=== PATIENT | female | born 1935 | race Caucasian/White ===

== ENCOUNTER → 2017-02-17 | Outpatient (CLI) | payer BC ==
[~2017-02-17] MED LIST: ANAS1TAB19 PO; CALC1TAB9 PO; CALCTAB7 PO; CHOL2000 PO; CYAN100020 PO; DOCU100C31 PO; FELO5TAB PO; FOLI1TAB7 PO; GEMF600T PO; GLC/500 PO; MGNO400 PO; MULT-589 PO; POTA12PO5 PO; SENN1TAB77 PO; SERT50TA PO; SIMV40TA2 PO; THM100 PO; VTMB12 PO; Vit D PO
--- NOTE | 2017-02-17 16:19 | MAMMOGRAPHY REPORT ---
UNILATERAL LEFT DIGITAL DIAGNOSTIC MAMMOGRAM TOMOSYNTHESIS WITH CAD: 02/17/2017 CLINICAL HISTORY: 81-year-old woman with a personal history of right breast cancer status post recur rence and subsequent mastectomy presents for diagnostic evaluation of the left breast. She has a hi story of prior left breast surgery. TECHNIQUE: Left breast tomosynthesis in addition to standard 2D mammography was performed. Current naomi lam was also evaluated with a Computer Aided Detection (CAD) system. COMPARISON: Comparison is made to exams dated: 01/23/2016 ultrasound, 01/23/2016 mammogram, 01/15/2016 mammogram, 01/11/2015 mammogram, 01/10/2014 mammogram, and 01/07/2013 mammogram - [facility] enter. BREAST COMPOSITION: The tissue of the left breast is heterogeneously dense, which may obscure small masses. FINDINGS: There are mild vascular calcifications and scattered coarse and round benign-appearing caren rocalcifications in the left breast. There is expected architectural distortion in the 10:00 middle one third of the left breast, which appears similar on all available prior mammograms dating back t o at least 11/23/2008. No suspicious spiculated or irregular mass, unexpected architectural distort ion or cluster of microcalcifications is seen. IMPRESSION: ACR BI-RADS CATEGORY 2: BENIGN There is no mammographic evidence of malignancy within the left breast. Return to annual mammogram s creening schedule is recommended. The patient has been verbally notified of the results. Approximately 10% of breast cancers are not detected with mammography. A negative mammographic repor t should not delay biopsy if a clinically suggestive mass is present. Roz Guerrero M.D. ay/:02/17/2017 14:02:54 Ux Developer Designer: Mimi BERGER(Ciera)(Niraj), [facility] letter sent: Normal 1/2 BI-RADS Code: ACR BI-RADS Category 2: Benign
== END | disposition home or self-care (01) ==
LOC: C.MAMM 12:38
PROVIDERS: ATTEND Nurse Practitioner Family
DX: Z12.31 Encounter for screening mammogram for malignant neoplasm of breast (principal); Z85.3 Personal history of malignant neoplasm of breast

== ENCOUNTER 2017-05-12 19:06 | Observation (INO) | payer BC ==
[~2017-05-12] VITALS: Ht 160 cm; Wt 43.5 kg
[~2017-05-12 19:06] MED LIST changes: -CALC1TAB9 PO; -CHOL2000 PO; -CYAN100020 PO; -FELO5TAB PO; -FOLI1TAB7 PO; -MGNO400 PO; -MULT-589 PO; -THM100 PO; -VTMB12 PO
--- NOTE | 2017-05-12 19:31 | EMERGENCY ROOM VISIT NOTE ---
History First contact with patient: 19:25 Chief Complaint: FALL Stated Complaint: FALL History of Present Illness The patient is a 81 year old female who presents to the Emergency Room with complaints of head laceration post fall 2 days ago, patient fell, after rising rapidly from chair. She denies tripping on anything, LOC, dizziness or lightheadedness. No SOB or CP, but does state her heart was "moving very fast." When asked how she fell, she states "because I 'm stupid" Currently she admits to head pain at site of 2 bumps, and back pain. She denies limb weakness, pain radiating down her legs, or saddle paresthesias. At baseline, patient states she ambulates with a cane, and her last fall occurred 1 year prior Says she is eating well. No issues with voiding or bowel movements. Denies issues completing chores at home (she lives alone). Patient from [place], and has no family here JOSE Osei [phone] (home), cell [phone] (neighbour) Story as per JOSE: Patient had picked up her newspaper yesterday, but not this morning. Ariadna went to check in on her Patient didn't open door for her, so Ariadna let herself in. She found patient in bed with head lacs. Found splatter of blood in living room. Patient screamed at Ariadna telling her to leave, but she called EMS instead. Ariadna also noted patient had 10 full size bottles of whisky at home, unsure of how recently they were consumed, but knows the patient to be a (?heavy) drinker, who has been belligerent at times. Estimates that she may go through 1 or 2 bottles each week. Says patient has several recurrent falls, and most recently, appeared to Ariadna 's april lunch, patient had bruised face/eye at the time. She does not think there is abuse involved as the patient is very isolated. Patient still drives, which concerns JOSE. JOSE does not think patient is safe at home. Review of Systems See HPI for pertinent positives and negatives. A total of ten systems were reviewed and were otherwise negative. Past Medical/Surgical History Medical Problems: (1) Breast cancer (2) Syncope and collapse (3) Vitamin B12 deficiency Social History Smoking Status: Former Smoker Alcohol Use: heavy, other (unquantified) Drug Use: none Marital Status: Housing Status: lives alone Occupation Status: retired Current/Historical Medications Scheduled Anastrozole (Arimidex), 1 MG PO DAILY Calcium Citrate-Vitamin D (Citracal + D3 Maximum), Unknown Dose PO DIRECTED Cyanocobalamin (Vitamin B12), 1,000 MCG PO DIRECTED Felodipine (Plendil), 5 MG PO DAILY Gemfibrozil (Lopid), 600 MG PO BID Sertraline (Zoloft), 50 MG PO DAILY Simvastatin (Zocor), 50 MG PO QPM Physical Exam Vital Signs Date Time Temp Pulse Resp B/P (MAP) Pulse Ox O2 Delivery O2 Flow Rate FiO2 05/12/17 21:46 88 18 100 05/12/17 21:30 137/81 05/12/17 21:16 90 19 99 05/12/17 21:04 127/87 05/12/17 20:16 89 25 100 05/12/17 20:11 85 15 100 05/12/17 20:00 132/75 05/12/17 19:41 93 28 100 05/12/17 19:36 94 21 97 05/12/17 19:30 106/92 05/12/17 19:29 92 05/12/17 19:20 143/86 05/12/17 19:06 36.8 91 16 143/86 96 Room Air Physical Exam GENERAL: alert, cachectic, lying in bed, no acute distress, non-toxic. Clothes are not soiled but are unkempt dirty/lauren HEAD: Normocephalic, traumatic laceration on superior posterior side of scalp, still oozing blood. No sinus tenderness. EYES: PERRL, EOMI, normal conjunctiva OROPHARYNX: no exudate, no erythema, lips, buccal mucosa, and tongue normal and mucous membranes are dry NECK: supple, no nuchal rigidity, no adenopathy, non-tender. No nuchal rigidity LUNGS: Clear to auscultation. Normal chest wall mechanics, good air entry. No crepitations, crackles, or wheezes HEART: S1 normal and S2 normal, no murmurs CHEST: No reproducible tenderness. ABDOMEN: abdomen soft, non-tender, normo-active bowel sounds, no masses, no rebound or guarding. BACK: Back is symmetrical on inspection, no deformities, but diffuse bruising present SKIN: Warm, pink, dry. No erythema, rashes. Bruising on back. Laceration on scalp. EXTREMITIES: Grossly normal. Able to move all 4 limbs but elicits pain. Strength 4-5/5. No pitting edema. Calves non tender. NEURO: Alert, Ox3. No focal deficits. Normal sensorium, cranial nerves II-XII grossly intact, normal speech. Kernig and Brudzinski negative PSYCH: Mood and affect appropriate. Medical Decision & Procedures ER Provider Diagnostic Interpretation: HEAD WITHOUT CONTRAST (CT) CLINICAL HISTORY: 81 years-old Female with Fall. TECHNIQUE: Multiple axial CT images of the head were obtained without contrast. A dose lowering technique was utilized adhering to the principles of ALARA. CT DOSE: 1425.10 mGy.cm COMPARISON: CT head 09/17/2014. FINDINGS: No acute intracranial hemorrhage, midline shift, mass, large territorial ischemia or abnormal extra-axial collection. There is moderate cerebral atrophy with ex vacuo ventriculomegaly. Senescent calcifications are seen within the lentiform nuclei bilaterally. Patchy areas of low attenuation within the periventricular white matter are compatible with chronic microvascular ischemic changes. The calvarium is intact. The paranasal sinuses, mastoid air cells, and middle ear cavities are clear. There has been prior right-sided cataract repair. IMPRESSION: 1. No acute intracranial abnormality. 2. Age-related findings of atrophy and chronic microvascular ischemic changes. CHEST ONE VIEW PORTABLE HISTORY: 81 years-old Female fall, bruising COMPARISON: Chest radiograph 09/17/2014 TECHNIQUE: Portable upright AP view of the chest FINDINGS: Cardiomediastinal and hilar silhouettes are within normal limits. There is atherosclerosis of the aorta. There is no pneumothorax, pleural effusion or focal airspace consolidation. The lungs are again hyperinflated. Surgical clips are seen within the region of the right axilla. There is subtle sigmoidal scoliosis of the spine. Exuberant osteophytic spurring is seen of the left distal clavicle. No acute displaced rib fractures are identified. IMPRESSION: 1. No acute cardiopulmonary process. 2. No acute displaced rib fracture or pneumothorax identified. (CHEST) THORAX WITHOUT CLINICAL HISTORY: 81 years-old Female with traumatic fall. TECHNIQUE: Multiaxial CT images of the chest were performed without contrast. A dose lowering technique was utilized adhering to the principles of ALARA. COMPARISON: CT abdomen and pelvis of same day, chest radiograph of same day. Chest radiograph 02/23/2014 FINDINGS: There are calcifications of the posterior left thyroid lobe without large nodule identified. Calcified lymph nodes throughout the mediastinum and carlos are compatible with prior granulomatous disease. There is moderate atherosclerosis of the thoracic aorta. Coronary arterial calcifications are present. Lungs are hyperinflated with mild left greater than right subsegmental atelectasis. There is a linear calcified granuloma of the right lower lobe. No pneumothorax, pleural effusion or focal airspace consolidation. There is diffuse fatty infiltration of the liver. Diverticula of the splenic flexure noted. The bones are moderately demineralized, which limits evaluation for acute nondisplaced fracture. There is increased kyphotic curvature of the thoracic spine. Superior compression deformity of L1 with approximately 20% loss of height anteriorly is noted with 3 mm retropulsion. This is unchanged dating back to at least 02/23/2014. IMPRESSION: 1. No acute intrathoracic abnormality. 2. No acute fracture identified. 3. Remote compression deformity of L1 appears unchanged dating back to at least 02/23/2014. 4. Additional incidental findings as above. CERVICAL SPINE W/O CT DOSE: 1005.86 mGy.cm CLINICAL HISTORY: 81 years-old Female with trauma. Neck injury status post fall TECHNIQUE: Multiple axial CT images of the cervical spine were obtained without contrast. A dose lowering technique was utilized adhering to the principles of ALARA. Comparison: CT cervical spine 09/17/2014. Findings: Remote fracture deformities involving the C3 vertebral body as well as the posterior elements at C4 and C5 are noted. No acute fracture or subluxation of the cervical spine is identified. The odontoid process and lateral pillars of C1 appear intact. Multilevel uncovertebral spurring and facet arthropathy is noted. Posterior disc osteophyte complex formation is seen at the C2-C3 and C3-C4 levels without high-grade central canal narrowing. Varying degrees of neural foraminal stenosis are seen at several levels without high-grade narrowing identified. The lung apices are clear. Calcifications are seen posterior to the left thyroid lobe. There is atherosclerotic plaquing of the bilateral carotid bulbs. IMPRESSION: 1. No acute cervical spine fracture or subluxation. 2. Remote healed fractures of the C3, C4 and C5 levels are noted. 3. Multilevel facet arthropathy is noted in addition to uncovertebral spurring and posterior disc osteophyte complex formation as above without high-grade central canal or foraminal narrowing identified. ABD/PELVIS NO IV OR ORAL CONT HISTORY: 81 years-old Female acute abdominal injury status post fall. COMPARISON: CT chest of same day, chest radiograph 02/23/2014. TECHNIQUE: Multiple axial CT images of the abdomen and pelvis were obtained without contrast. A dose lowering technique was used consistent with the principals of ALARA. FINDINGS: Subsegmental linear atelectasis involves the left lower lobe. There is a calcified granuloma of the right lower lobe. There is no pneumoperitoneum. Imaged inferior cardiac chambers are unremarkable. There is diffuse fatty infiltration of the liver. The spleen, gallbladder and right adrenal gland are unremarkable. There is nodular thickening of the left adrenal gland. There is at least moderate diffuse pancreatic atrophy. Cortical thinning of the left kidney is noted. No renal calculi or hydronephrosis identified. Urinary bladder is distended. Uterus appears to be age appropriate. There is moderate atherosclerotic plaquing and tortuosity of the abdominal aorta. No bulky adenopathy. There is a small sliding-type hiatal hernia. There is no bowel obstruction. Noninflamed colonic diverticula are present. The appendix appears normal. Moderate amount of body wall edema is present. Bones are moderately demineralized which limits evaluation for acute nondisplaced fractures. Moderate degenerative changes involve the hips bilaterally. Levoscoliosis of the lumbar spine is noted. There is remote compression deformity of the L1 vertebral body with 3 mm retropulsion. This compression deformity has been present since at least 02/23/2014. Moderate intervertebral disc space narrowing and facet arthropathy is present at L5-S1. No sacral insufficiency fracture identified. IMPRESSION: 1. No acute intra-abdominal or intrapelvic abnormality identified. No evidence of solid organ injury. 2. Remote compression deformity of the L1 vertebral body. No acute fracture is identified. 3. Additional incidental findings as above. Laboratory Results 05/12/17 20:50 Red Blood Count 3.23, Mean Corpuscular Volume 95.7, Mean Corpuscular Hemoglobin 33.4, Mean Corpuscular Hemoglobin Concent 35.0, Mean Platelet Volume 10.6, Neutrophils (%) (Auto) 91.6, Lymphocytes (%) (Auto) 3.7, Monocytes (%) (Auto) 3.9, Eosinophils (%) (Auto) 0.0, Basophils (%) (Auto) 0.1, Neutrophils # (Auto) 15.62, Lymphocytes # (Auto) 0.63, Monocytes # (Auto) 0.67, Eosinophils # (Auto) 0.00, Basophils # (Auto) 0.01 05/12/17 20:50 Test 05/12/17 20:50 05/12/17 20:53 05/12/17 22:38 White Blood Count 17.05 K/uL (4.8-10.8) Red Blood Count 3.23 M/uL (4.2-5.4) Hemoglobin 10.8 g/dL (12.0-16.0) Hematocrit 30.9 % (37-47) Mean Corpuscular Volume 95.7 fL (80-100) Mean Corpuscular Hemoglobin 33.4 pg (25-34) Mean Corpuscular Hemoglobin Concent 35.0 g/dl (32-36) Platelet Count 153 K/uL (130-400) Mean Platelet Volume 10.6 fL (7.4-10.4) Neutrophils (%) (Auto) 91.6 % Lymphocytes (%) (Auto) 3.7 % Monocytes (%) (Auto) 3.9 % Eosinophils (%) (Auto) 0.0 % Basophils (%) (Auto) 0.1 % Neutrophils # (Auto) 15.62 K/uL (1.4-6.5) Lymphocytes # (Auto) 0.63 K/uL (1.2-3.4) Monocytes # (Auto) 0.67 K/uL (0.11-0.59) Eosinophils # (Auto) 0.00 K/uL (0-0.5) Basophils # (Auto) 0.01 K/uL (0-0.2) RDW Standard Deviation 47.6 fL (36.4-46.3) RDW Coefficient of Variation 13.6 % (11.5-14.5) Immature Granulocyte % (Auto) 0.7 % Immature Granulocyte # (Auto) 0.12 K/uL (0.00-0.02) Prothrombin Time 10.0 SECONDS (9.0-12.0) Prothromb Time International Ratio 0.9 (0.9-1.1) Est Creatinine Clear Calc Drug Dose 32.9 ml/min Estimated GFR () 64.4 Estimated GFR (Non- 55.5 BUN/Creatinine Ratio 10.6 (10-20) Calcium Level 10.0 mg/dl (8.5-10.1) Total Bilirubin 1.0 mg/dl (0.2-1) Aspartate Amino Transf (AST/SGOT) 62 U/L (15-37) Alanine Aminotransferase (ALT/SGPT) 37 U/L (12-78) Alkaline Phosphatase 106 U/L (45-117) Total Creatine Kinase 248 U/L (26-192) Troponin I 0.017 ng/ml (0-0.045) Total Protein 6.5 gm/dl (6.4-8.2) Albumin 3.3 gm/dl (3.4-5.0) Globulin 3.2 gm/dl (2.5-4.0) Albumin/Globulin Ratio 1.0 (0.9-2) Bedside Hemoglobin 12.2 g/dl (12.0-16.0) Bedside Hematocrit 36 % (37-47) Bedside Sodium 133 mEq/L (135-144) Bedside Potassium 5.4 mEq/L (3.3-5.0) Bedside Chloride 105 mEq/L (101-112) Bedside Total CO2 22 mEq/l (24-31) Anion Gap 14.0 mmol/L (16-25) Bedside Blood Urea Nitrogen 11 mg/dl (7-18) Bedside Creatinine 0.9 mg/dl (0.6-1.3) Bedside Glucose (other) 133 mg/dl (70-99) Bedside Ionized Calcium (Silvino) 1.19 mmol/l (1.12-1.32) Ethyl Alcohol mg/dL < 3.0 mg/dl (0-3) Medications Administered Medications (Trade) Dose Ordered Sig/Jenny Route Start Time Stop Time Status Last Admin Dose Admin Sodium Chloride 250 ml @ 250 mls/hr Q1H IV 05/12/17 20:45 05/12/17 21:44 DC 05/12/17 20:52 250 MLS/HR Sodium Chloride 250 ml @ 100 mls/hr Q2H30M IV 05/12/17 22:00 05/13/17 00:29 DC 05/12/17 22:15 100 MLS/HR Multivitamins 10 ml/Thiamine HCl 100 mg/Folic Acid 1 mg/Sodium Chloride 1,011.2 ml @ 75 mls/hr [id number] STAT IV 05/12/17 22:17 05/13/17 11:45 DC 05/12/17 22:53 75 MLS/HR Procedure Patient verbally consented for scalp laceration repair, with risks and benefits explained, and alternatives offered. Laceration was irrigated with copious normal saline solution. Local area was anesthetized with 2cc of lidocaine without epinephrine. Area cleaned with Betadine wipes x 3. Edges were approximated and 3 peyton were used to hold the skin in place, hemostasis was achieved. Patient tolerated the procedure well. No immediate complications were met ECG Indication: syncope Rate (beats per minute): 90 Rhythm: normal sinus Change: no significant change (When compared with ECG of 17-SEP-2014 16:32) ED Course 1929: The patient was evaluated in room A11B, and a complete history and physical examination were performed. 2002: Labs and imaging were ordered 2100: Patient was reevaluated and doing well. She continued to decline analgesia 0: In depth discussion was had with neighbour (POA) and neighbour's daughter 2225: Patient and guests were updated and advised that patient would be admitted for further evaluation. The patient and family were agreeable 2230: Patient was discussed with Dr. Cazares and Dr. Barker ([facility] who were agreeable to assess patient 2240: Head lacerations repaired Medical Decision Prior records/ancillary studies reviewed. Triage Nursing notes reviewed. Additional history obtained from patient, patient's neighbour (POA) and neighbour's daughter. The patient's history was concerning for traumatic injury Differential diagnosis: Etiologies such as fracture, dislocation, intra-abdominal, pneumothorax, intrathoracic , intracranial, neurologic, as well as other traumatic pathologies were entertained. Physical examination findings: As above. The patients vitals were stable. ER treatment provided: IV Normal Saline hydration, 250 mL. On reassessment the patient felt better. Vital signs were stable through out. Diagnostic interpretation by me: A 12 lead ECG revealed no emergent pathology. The labs revealed leukocytosis, anemia, mild elevation of CK, and elevated AST Imaging studies were negative for ICH and acute fractures Consultation: A consultation was placed with [facility] hospitalist. The case was discussed and diagnostics were reviewed. The patient was considered for admission. This appears to be consistent with fall. By the evaluation outlined above emergent etiologies such as fracture, dislocation, intra-abdominal, pneumothorax , pulmonary contusion, hemothorax, intracranial, neurologic,as well as others were deemed relatively unlikely. The patient and POA informed about the findings as listed above. All questions were answered and they were pleased with the treatment and agreeable for admission. Impression Primary Impression: Weakness Additional Impressions: Contusion Recurrent falls AA (alcohol abuse) Laceration of head Departure Information Referrals Rodger Arnold M.D. (PCP) Patient Instructions My [facility] Resident Tracking Resident Involvement: Resident Care Provided Care Provided: Adult ED Problem Qualifiers
--- NOTE | 2017-05-12 20:20 | EMERGENCY ROOM VISIT NOTE ---
History Report prepared by Kole: Wyatt Coffey Under the Supervision of: Dr. French Loza M.D. First contact with patient: 19:25 Chief Complaint: FALL Stated Complaint: FALL History of Present Illness The patient is a 81 year old female who lives home alone who presents to the Emergency Room with a mechanical fall that occurred more than 24 hours ago. Per EMS, the patient's neighbors walked into the patient's home to find the patient on the floor. The patient was probably on the floor for more than 24 hours, and the patient was brought off of the ground. Per the patient, she was sitting watching TV 2 days ago, and got off the couch too quickly and fell. She says that she was able to get up after 5 minutes, and actually opened the door for her neighbors. The patient notes that her heart has been beating rapidly recently and that she has back pain. She says her last fall was a year ago. The patient denies any fevers, dizziness, lightheadedness, chest pain, abdominal pain, shortness of breath, nausea, numbness, or tingling. She says that her last bowel movement was this morning. The patient is noted to have a head laceration that is bleeding as well as a bump on her head. She adds that she did not take any of her medications this morning. Source of History: patient, EMS Onset: More than 24 hours ago Position: other (global - fall) Quality: other (mechanical) Associated Symptoms: + back pain, No fevers, No chest pain, No SOB, No nausea, No vomiting, No abdominal pain, No numbness (or tingling) Note: Associated symptoms: Feelings of rapid heart rate. Denies dizziness, lightheadedness. Review of Systems See HPI for pertinent positives & negatives. A total of 10 systems reviewed and were otherwise negative. Past Medical & Surgical Medical Problems: (1) Breast cancer (2) Syncope and collapse (3) Vitamin B12 deficiency Old medical records were reviewed. Nurse's notes were reviewed and I agree with. Family History Family history omitted secondary to patient's advanced age. Social History Smoking Status: Former Smoker Drug Use: none Marital Status: Occupation Status: retired Current/Historical Medications Scheduled Anastrozole (Arimidex), 1 MG PO DAILY Calcium Citrate-Vitamin D (Citracal + D3 Maximum), Unknown Dose PO DIRECTED Cyanocobalamin (Vitamin B12), 1,000 MCG PO DIRECTED Felodipine (Plendil), 5 MG PO DAILY Gemfibrozil (Lopid), 600 MG PO BID Metformin Hcl (Glucophage), 500 MG PO DAILY Sertraline (Zoloft), 50 MG PO DAILY Simvastatin (Zocor), 50 MG PO QPM Allergies Coded Allergies: Penicillins (Verified Allergy, Mild, 05/12/17) Sulfa Drugs (Verified Adverse Reaction, Unknown, GI SYMPTOMS, 05/12/17) Physical Exam Vital Signs Date Time Temp Pulse Resp B/P (MAP) Pulse Ox O2 Delivery O2 Flow Rate FiO2 05/13/17 00:04 83 18 120/73 100 05/12/17 21:46 88 18 100 05/12/17 21:30 137/81 05/12/17 21:16 90 19 99 05/12/17 21:04 127/87 05/12/17 20:16 89 25 100 05/12/17 20:11 85 15 100 05/12/17 20:00 132/75 05/12/17 19:41 93 28 100 05/12/17 19:36 94 21 97 05/12/17 19:30 106/92 05/12/17 19:29 92 05/12/17 19:20 143/86 05/12/17 19:06 36.8 91 16 143/86 96 Room Air Physical Exam General: Well developed well nourished cachectic older female in no acute distress, breathing comfortably on room air. Normal speech HEENT: Dry blood and laceration with some swelling in posterior scalp. Has bruising on thoracic back. Pupils are equal round and reactive to light. Extraocular movements are intact. Oropharynx is pink with moist mucous membranes. No swelling of the mouth lips or tongue. Neck: Supple with a midline trachea. No meningeal signs or stiffness, no JVD or bruits. No Stridor. Chest: Clear to auscultation bilaterally. No wheezes or rhonchi. No increased work of breathing. She does have multiple bruises on her back which appear somewhat old and possibly various ages Heart: regular rate and rhythm. Abdomen: Soft nontender, nondistended without rebound guarding or rigidity. Extremities: No cyanosis clubbing or edema. No calf tenderness or assymetry Spine/Back. Non tender to palpation. No CVA tenderness Skin: Good turgor without rashes. Neurologic exam: Cranial nerves two through 12 are intact. Motor and sensation are intact and symmetrical throughout. Medical Decision & Procedures ER Provider Diagnostic Interpretation: Radiology results as stated below per my review and radiologist interpretation: HEAD WITHOUT CONTRAST (CT) CLINICAL HISTORY: 81 years-old Female with Fall. TECHNIQUE: Multiple axial CT images of the head were obtained without contrast. A dose lowering technique was utilized adhering to the principles of ALARA. CT DOSE: 1425.10 mGy.cm COMPARISON: CT head 09/17/2014. FINDINGS: No acute intracranial hemorrhage, midline shift, mass, large territorial ischemia or abnormal extra-axial collection. There is moderate cerebral atrophy with ex vacuo ventriculomegaly. Senescent calcifications are seen within the lentiform nuclei bilaterally. Patchy areas of low attenuation within the periventricular white matter are compatible with chronic microvascular ischemic changes. The calvarium is intact. The paranasal sinuses, mastoid air cells, and middle ear cavities are clear. There has been prior right-sided cataract repair. IMPRESSION: 1. No acute intracranial abnormality. 2. Age-related findings of atrophy and chronic microvascular ischemic changes. The above report was generated using voice recognition software. It may contain grammatical, syntax or spelling errors. Electronically signed by: Michael Iglesias M.D. 05/12/2017 8:42 PM Dictated Date/Time: 05/12/2017 8:40 PM CHEST ONE VIEW PORTABLE HISTORY: 81 years-old Female fall, bruising COMPARISON: Chest radiograph 09/17/2014 TECHNIQUE: Portable upright AP view of the chest FINDINGS: Cardiomediastinal and hilar silhouettes are within normal limits. There is atherosclerosis of the aorta. There is no pneumothorax, pleural effusion or focal airspace consolidation. The lungs are again hyperinflated. Surgical clips are seen within the region of the right axilla. There is subtle sigmoidal scoliosis of the spine. Exuberant osteophytic spurring is seen of the left distal clavicle. No acute displaced rib fractures are identified. IMPRESSION: 1. No acute cardiopulmonary process. 2. No acute displaced rib fracture or pneumothorax identified. The above report was generated using voice recognition software. It may contain grammatical, syntax or spelling errors. Electronically signed by: Michael Iglesias M.D. 05/12/2017 8:36 PM (CHEST) THORAX WITHOUT CLINICAL HISTORY: 81 years-old Female with traumatic fall. TECHNIQUE: Multiaxial CT images of the chest were performed without contrast. A dose lowering technique was utilized adhering to the principles of ALARA. COMPARISON: CT abdomen and pelvis of same day, chest radiograph of same day. Chest radiograph 02/23/2014 FINDINGS: There are calcifications of the posterior left thyroid lobe without large nodule identified. Calcified lymph nodes throughout the mediastinum and carlos are compatible with prior granulomatous disease. There is moderate atherosclerosis of the thoracic aorta. Coronary arterial calcifications are present. Lungs are hyperinflated with mild left greater than right subsegmental atelectasis. There is a linear calcified granuloma of the right lower lobe. No pneumothorax, pleural effusion or focal airspace consolidation. There is diffuse fatty infiltration of the liver. Diverticula of the splenic flexure noted. The bones are moderately demineralized, which limits evaluation for acute nondisplaced fracture. There is increased kyphotic curvature of the thoracic spine. Superior compression deformity of L1 with approximately 20% loss of height anteriorly is noted with 3 mm retropulsion. This is unchanged dating back to at least 02/23/2014. IMPRESSION: 1. No acute intrathoracic abnormality. 2. No acute fracture identified. 3. Remote compression deformity of L1 appears unchanged dating back to at least 02/23/2014. 4. Additional incidental findings as above. Electronically signed by: Michael Iglesias M.D. 05/12/2017 10:09 PM Dictated Date/Time: 05/12/2017 10:03 PM CERVICAL SPINE W/O CT DOSE: 1005.86 mGy.cm CLINICAL HISTORY: 81 years-old Female with trauma. Neck injury status post fall TECHNIQUE: Multiple axial CT images of the cervical spine were obtained without contrast. A dose lowering technique was utilized adhering to the principles of ALARA. Comparison: CT cervical spine 09/17/2014. Findings: Remote fracture deformities involving the C3 vertebral body as well as the posterior elements at C4 and C5 are noted. No acute fracture or subluxation of the cervical spine is identified. The odontoid process and lateral pillars of C1 appear intact. Multilevel uncovertebral spurring and facet arthropathy is noted. Posterior disc osteophyte complex formation is seen at the C2-C3 and C3-C4 levels without high-grade central canal narrowing. Varying degrees of neural foraminal stenosis are seen at several levels without high-grade narrowing identified. The lung apices are clear. Calcifications are seen posterior to the left thyroid lobe. There is atherosclerotic plaquing of the bilateral carotid bulbs. IMPRESSION: 1. No acute cervical spine fracture or subluxation. 2. Remote healed fractures of the C3, C4 and C5 levels are noted. 3. Multilevel facet arthropathy is noted in addition to uncovertebral spurring and posterior disc osteophyte complex formation as above without high-grade central canal or foraminal narrowing identified. The above report was generated using voice recognition software. It may contain grammatical, syntax or spelling errors. Electronically signed by: Michael Iglesias M.D. 05/12/2017 10:15 PM Dictated Date/Time: 05/12/2017 10:09 PM ABD/PELVIS NO IV OR ORAL CONT HISTORY: 81 years-old Female acute abdominal injury status post fall. COMPARISON: CT chest of same day, chest radiograph 02/23/2014. TECHNIQUE: Multiple axial CT images of the abdomen and pelvis were obtained without contrast. A dose lowering technique was used consistent with the principals of ALARA. FINDINGS: Subsegmental linear atelectasis involves the left lower lobe. There is a calcified granuloma of the right lower lobe. There is no pneumoperitoneum. Imaged inferior cardiac chambers are unremarkable. There is diffuse fatty infiltration of the liver. The spleen, gallbladder and right adrenal gland are unremarkable. There is nodular thickening of the left adrenal gland. There is at least moderate diffuse pancreatic atrophy. Cortical thinning of the left kidney is noted. No renal calculi or hydronephrosis identified. Urinary bladder is distended. Uterus appears to be age appropriate. There is moderate atherosclerotic plaquing and tortuosity of the abdominal aorta. No bulky adenopathy. There is a small sliding-type hiatal hernia. There is no bowel obstruction. Noninflamed colonic diverticula are present. The appendix appears normal. Moderate amount of body wall edema is present. Bones are moderately demineralized which limits evaluation for acute nondisplaced fractures. Moderate degenerative changes involve the hips bilaterally. Levoscoliosis of the lumbar spine is noted. There is remote compression deformity of the L1 vertebral body with 3 mm retropulsion. This compression deformity has been present since at least 02/23/2014. Moderate intervertebral disc space narrowing and facet arthropathy is present at L5-S1. No sacral insufficiency fracture identified. IMPRESSION: 1. No acute intra-abdominal or intrapelvic abnormality identified. No evidence of solid organ injury. 2. Remote compression deformity of the L1 vertebral body. No acute fracture is identified. 3. Additional incidental findings as above. The above report was generated using voice recognition software. It may contain grammatical, syntax or spelling errors. Electronically signed by: Michael Iglesias M.D. 05/12/2017 10:38 PM Dictated Date/Time: 05/12/2017 10:33 PM Laboratory Results 05/12/17 20:50 Red Blood Count 3.23, Mean Corpuscular Volume 95.7, Mean Corpuscular Hemoglobin 33.4, Mean Corpuscular Hemoglobin Concent 35.0, Mean Platelet Volume 10.6, Neutrophils (%) (Auto) 91.6, Lymphocytes (%) (Auto) 3.7, Monocytes (%) (Auto) 3.9, Eosinophils (%) (Auto) 0.0, Basophils (%) (Auto) 0.1, Neutrophils # (Auto) 15.62, Lymphocytes # (Auto) 0.63, Monocytes # (Auto) 0.67, Eosinophils # (Auto) 0.00, Basophils # (Auto) 0.01 05/12/17 20:50 Test 05/12/17 20:50 05/12/17 20:53 05/12/17 22:38 White Blood Count 17.05 K/uL (4.8-10.8) Red Blood Count 3.23 M/uL (4.2-5.4) Hemoglobin 10.8 g/dL (12.0-16.0) Hematocrit 30.9 % (37-47) Mean Corpuscular Volume 95.7 fL (80-100) Mean Corpuscular Hemoglobin 33.4 pg (25-34) Mean Corpuscular Hemoglobin Concent 35.0 g/dl (32-36) Platelet Count 153 K/uL (130-400) Mean Platelet Volume 10.6 fL (7.4-10.4) Neutrophils (%) (Auto) 91.6 % Lymphocytes (%) (Auto) 3.7 % Monocytes (%) (Auto) 3.9 % Eosinophils (%) (Auto) 0.0 % Basophils (%) (Auto) 0.1 % Neutrophils # (Auto) 15.62 K/uL (1.4-6.5) Lymphocytes # (Auto) 0.63 K/uL (1.2-3.4) Monocytes # (Auto) 0.67 K/uL (0.11-0.59) Eosinophils # (Auto) 0.00 K/uL (0-0.5) Basophils # (Auto) 0.01 K/uL (0-0.2) RDW Standard Deviation 47.6 fL (36.4-46.3) RDW Coefficient of Variation 13.6 % (11.5-14.5) Immature Granulocyte % (Auto) 0.7 % Immature Granulocyte # (Auto) 0.12 K/uL (0.00-0.02) Prothrombin Time 10.0 SECONDS (9.0-12.0) Prothromb Time International Ratio 0.9 (0.9-1.1) Est Creatinine Clear Calc Drug Dose 32.9 ml/min Estimated GFR () 64.4 Estimated GFR (Non- 55.5 BUN/Creatinine Ratio 10.6 (10-20) Calcium Level 10.0 mg/dl (8.5-10.1) Total Bilirubin 1.0 mg/dl (0.2-1) Aspartate Amino Transf (AST/SGOT) 62 U/L (15-37) Alanine Aminotransferase (ALT/SGPT) 37 U/L (12-78) Alkaline Phosphatase 106 U/L (45-117) Total Creatine Kinase 248 U/L (26-192) Troponin I 0.017 ng/ml (0-0.045) Total Protein 6.5 gm/dl (6.4-8.2) Albumin 3.3 gm/dl (3.4-5.0) Globulin 3.2 gm/dl (2.5-4.0) Albumin/Globulin Ratio 1.0 (0.9-2) Bedside Hemoglobin 12.2 g/dl (12.0-16.0) Bedside Hematocrit 36 % (37-47) Bedside Sodium 133 mEq/L (135-144) Bedside Potassium 5.4 mEq/L (3.3-5.0) Bedside Chloride 105 mEq/L (101-112) Bedside Total CO2 22 mEq/l (24-31) Anion Gap 14.0 mmol/L (16-25) Bedside Blood Urea Nitrogen 11 mg/dl (7-18) Bedside Creatinine 0.9 mg/dl (0.6-1.3) Bedside Glucose (other) 133 mg/dl (70-99) Bedside Ionized Calcium (Silvino) 1.19 mmol/l (1.12-1.32) Ethyl Alcohol mg/dL < 3.0 mg/dl (0-3) Laboratory studies as stated above per my review. Medications Administered Medications (Trade) Dose Ordered Sig/Jenny Route Start Time Stop Time Status Last Admin Dose Admin Sodium Chloride 250 ml @ 250 mls/hr Q1H IV 05/12/17 20:45 05/12/17 21:44 DC 05/12/17 20:52 250 MLS/HR Sodium Chloride 250 ml @ 100 mls/hr Q2H30M IV 05/12/17 22:00 05/13/17 00:29 05/12/17 22:15 100 MLS/HR Multivitamins 10 ml/Thiamine HCl 100 mg/Folic Acid 1 mg/Sodium Chloride 1,011.2 ml @ 75 mls/hr [id number] STAT IV 05/12/17 22:17 05/13/17 11:45 05/12/17 22:53 75 MLS/HR Procedure Location: Scalp. Total length: 1 cm Complexity: Simple Verbal consent was obtained after the risks and benefits were explained, including but not limited to bleeding, scarring, infection, pain, and bone/joint /nerve damage. At this time, the risks of the procedure are less than the risks of NOT performing the procedure. A time out was taken and the correct patient and site identified. The skin was prepped with betadine. The target area was anesthetized with half cc of 1% lidocaine without epinephrine. Copious irrigation was performed using normal saline. The skin was re-prepped with betadine and a sterile field set. The wound was explored for foreign bodies and none found. Examination revealed no injury to deep structures such as tendons, bone, or significant blood vessels. Debridement was not performed. The wound edges were approximated using 3 peyton. Hemostasis and excellent approximation was achieved. Antibacterial ointment and a sterile dressing applied. Detailed wound care instructions and signs and symptoms of infection reviewed with the patient.. No complications and the patient tolerated the procedure well. ECG Indication: weakness Rate (beats per minute): 90 Rhythm: normal sinus, other (poor baseline) Findings: no acute ischemic change, no ectopy Change: no significant change (compared to 09/17/14) ED Course 2014: Past medical records reviewed. The patient was evaluated in room A11B, and a complete history and physical examination were performed. 2044: Ordered NSS 250 ml @ 250 mls/hr IV. 2107: I reevaluated and updated the patient. 2199: Ordered NSS 250 ml @ 100 mls/hr IV. 2216: Ordered Multivitamins 10 ml/Thiamine HCl 100 mg/Folic Acid 1 mg/Sodium Chloride 1011.2 ml @ 75 mls/hr IV. 2228: I reevaluated the patient and she is resting. The patient and family verbally expressed understanding and agreement of the treatment plan. The patient will be evaluated for further treatment. 2229: Ordered Buffered Lidocaine 1% Inj 20 ml INFIL. 2231: I discussed the patient with Dr. Cazares - resident for Dr. Oliver ([facility] hospitalist) - she will evaluate the patient for further treatment. Medical Decision Differentials include, but are not limited to; trauma, syncope, arrhythmia, electrolyte or metabolic abnormality, rhabdomyolysis, infection. This patient comes in as described above. She was found down and there is uncertainty to how long she's been on the ground s. He tells a different story than EMS. She has a laceration her head and she has multiple bruises on her back. She is very cachectic appearing. We looked at her medications and they have not been filled for about a year. IV access established and she was hydrated with IV normal saline and there is certainly a concern initially for possible rhabdomyolysis. We did CAT scans but without contrast due to this concern. She has some several old injuries but nothing acute. EKG does not suggest acute coronary syndrome or arrhythmia. Potassium is mildly elevated but she has no EKG changes. Her CK is not significantly elevated but only mildly however she does not weigh much that she could have some mild rhabdo. We did repair her laceration with peyton as described above. Her friends who are her legal guardians and power of environmental attorney showed up. Apparently she is a heavy drinker and falls a lot. It sounds she's had a significant decline at home and has been drinking a lot and not seen her doctor. She was given a banana bag IV. She does not appear to be acutely withdrawing. I do think she needs to be admitted for further treatment and evaluation and ultimately placement. We have consulted the [facility] hospitalist to see her. Medication Reconcilliation Current Medication List: was personally reviewed by me Blood Pressure Screening Patient's blood pressure: Normal blood pressure Consults Time Called: 2229 Consulting Physician: Dr. Cazares - resident for Dr. Oliver ([facility] hospitalist) Returned Call: 2231 I discussed the patient with Dr. Cazares - resident for Dr. Oliver ( [facility] hospitalist) - she will evaluate the patient for further treatment. Impression Primary Impression: Weakness Additional Impressions: Frequent falls Dehydration Scalp laceration Contusion of multiple sites Alcohol abuse Scribe Attestation The scribe's documentation has been prepared under my direction and personally reviewed by me in its entirety. I confirm that the note above accurately reflects all work, treatment, procedures, and medical decision making performed by me. Departure Information Dispostion Being Evaluated By Hospitalist Referrals No Doctor, Assigned (PCP) Patient Instructions My [facility] Health Problem Qualifiers
--- NOTE | 2017-05-12 20:38 | DIAGNOSTIC IMAGING REPORT ---
CHEST ONE VIEW PORTABLE HISTORY: 81 years-old Female fall, bruising COMPARISON: Chest radiograph 09/17/2014 TECHNIQUE: Portable upright AP view of the chest FINDINGS: Cardiomediastinal and hilar silhouettes are within normal limits. There is atherosclerosis of the aorta. There is no pneumothorax, pleural effusion or focal airspace consolidation. The lungs are again hyperinflated. Surgical clips are seen within the region of the right axilla. There is subtle sigmoidal scoliosis of the spine. Exuberant osteophytic spurring is seen of the left distal clavicle. No acute displaced rib fractures are identified. IMPRESSION: 1. No acute cardiopulmonary process. 2. No acute displaced rib fracture or pneumothorax identified. The above report was generated using voice recognition software. It may contain grammatical, syntax or spelling errors. Electronically signed by: Michael Iglesias M.D. 05/12/2017 8:36 PM Dictated Date/Time: 05/12/2017 8:35 PM
--- NOTE | 2017-05-12 20:43 | DIAGNOSTIC IMAGING REPORT ---
HEAD WITHOUT CONTRAST (CT) CLINICAL HISTORY: 81 years-old Female with Fall. TECHNIQUE: Multiple axial CT images of the head were obtained without contrast. A dose lowering technique was utilized adhering to the principles of ALARA. CT DOSE: 1425.10 mGy.cm COMPARISON: CT head 09/17/2014. FINDINGS: No acute intracranial hemorrhage, midline shift, mass, large territorial ischemia or abnormal extra-axial collection. There is moderate cerebral atrophy with ex vacuo ventriculomegaly. Senescent calcifications are seen within the lentiform nuclei bilaterally. Patchy areas of low attenuation within the periventricular white matter are compatible with chronic microvascular ischemic changes. The calvarium is intact. The paranasal sinuses, mastoid air cells, and middle ear cavities are clear. There has been prior right-sided cataract repair. IMPRESSION: 1. No acute intracranial abnormality. 2. Age-related findings of atrophy and chronic microvascular ischemic changes. The above report was generated using voice recognition software. It may contain grammatical, syntax or spelling errors. Electronically signed by: Michael Iglesias M.D. 05/12/2017 8:42 PM Dictated Date/Time: 05/12/2017 8:40 PM
[2017-05-12] MEDS ORDERED: SODIUM CHLORIDE 0.9% 250ML 250 ML IV SCH ×2 (20:45→22:00)
[2017-05-12] MEDS ORDERED: CALC1TAB9 PO (20:47)
[2017-05-12] MEDS ORDERED: CYAN100020 PO (20:47)
[2017-05-12] MEDS ORDERED: FELO5TAB PO (20:47)
[2017-05-12 21:06] LABS: ISTAT CREATININE 0.9 mg/dl (0.6-1.3); ISTAT HEMOGLOBIN 12.2 g/dl (12.0-16.0); ISTAT IONIZED CALCIUM 1.19 mmol/l (1.12-1.32)
[2017-05-12 21:08] LABS: BASO % 0.1 %; BASO ABS # 0.01 K/uL (0-0.2); COMPLETE YES; HEMATOCRIT 30.9 % (37-47); IG% 0.7 %; LYMPH % 3.7 %; LYMPH ABS # 0.63 K/uL (1.2-3.4); MEAN CELL VOLUME 95.7 fL (80-100); MEAN CORPUSCULAR HEMOGLOBIN 33.4 pg (25-34); MEAN PLATELET VOLUME 10.6 fL (7.4-10.4); MONO % 3.9 %; NEUT % 91.6 %; PLATELET COUNT 153 K/uL (130-400); RED BLOOD COUNT 3.23 M/uL (4.2-5.4); WHITE BLOOD COUNT 17.05 K/uL (4.8-10.8)
[2017-05-12 21:17] LABS: INR 0.9 (0.9-1.1)
[2017-05-12 21:27] LABS: BUN/CREATININE RATIO 10.6 (10-20); CREATININE 0.97 mg/dl (0.60-1.20)
--- NOTE | 2017-05-12 22:10 | DIAGNOSTIC IMAGING REPORT ---
(CHEST) THORAX WITHOUT CLINICAL HISTORY: 81 years-old Female with traumatic fall. TECHNIQUE: Multiaxial CT images of the chest were performed without contrast. A dose lowering technique was utilized adhering to the principles of ALARA. COMPARISON: CT abdomen and pelvis of same day, chest radiograph of same day. Chest radiograph 02/23/2014 FINDINGS: There are calcifications of the posterior left thyroid lobe without large nodule identified. Calcified lymph nodes throughout the mediastinum and carlos are compatible with prior granulomatous disease. There is moderate atherosclerosis of the thoracic aorta. Coronary arterial calcifications are present. Lungs are hyperinflated with mild left greater than right subsegmental atelectasis. There is a linear calcified granuloma of the right lower lobe. No pneumothorax, pleural effusion or focal airspace consolidation. There is diffuse fatty infiltration of the liver. Diverticula of the splenic flexure noted. The bones are moderately demineralized, which limits evaluation for acute nondisplaced fracture. There is increased kyphotic curvature of the thoracic spine. Superior compression deformity of L1 with approximately 20% loss of height anteriorly is noted with 3 mm retropulsion. This is unchanged dating back to at least 02/23/2014. IMPRESSION: 1. No acute intrathoracic abnormality. 2. No acute fracture identified. 3. Remote compression deformity of L1 appears unchanged dating back to at least 02/23/2014. 4. Additional incidental findings as above. Electronically signed by: Michael Iglesias M.D. 05/12/2017 10:09 PM Dictated Date/Time: 05/12/2017 10:03 PM
[2017-05-12] MEDS ORDERED: MULTI-VITAMIN INFUSION INJ 10 ML, THIAMINE HCL INJ 100 MG, FoLIC ACID INJ 1 MG in SODIU... IV STA (22:17)
--- NOTE | 2017-05-12 22:17 | DIAGNOSTIC IMAGING REPORT ---
CERVICAL SPINE W/O CT DOSE: 1005.86 mGy.cm CLINICAL HISTORY: 81 years-old Female with trauma. Neck injury status post fall TECHNIQUE: Multiple axial CT images of the cervical spine were obtained without contrast. A dose lowering technique was utilized adhering to the principles of ALARA. Comparison: CT cervical spine 09/17/2014. Findings: Remote fracture deformities involving the C3 vertebral body as well as the posterior elements at C4 and C5 are noted. No acute fracture or subluxation of the cervical spine is identified. The odontoid process and lateral pillars of C1 appear intact. Multilevel uncovertebral spurring and facet arthropathy is noted. Posterior disc osteophyte complex formation is seen at the C2-C3 and C3-C4 levels without high-grade central canal narrowing. Varying degrees of neural foraminal stenosis are seen at several levels without high-grade narrowing identified. The lung apices are clear. Calcifications are seen posterior to the left thyroid lobe. There is atherosclerotic plaquing of the bilateral carotid bulbs. IMPRESSION: 1. No acute cervical spine fracture or subluxation. 2. Remote healed fractures of the C3, C4 and C5 levels are noted. 3. Multilevel facet arthropathy is noted in addition to uncovertebral spurring and posterior disc osteophyte complex formation as above without high-grade central canal or foraminal narrowing identified. The above report was generated using voice recognition software. It may contain grammatical, syntax or spelling errors. Electronically signed by: Michael Iglesias M.D. 05/12/2017 10:15 PM Dictated Date/Time: 05/12/2017 10:09 PM
[2017-05-12] MEDS ORDERED: XYLOCAINE 1%/SOD BICARB 20 ML VIAL INFIL ONE (22:30)
--- NOTE | 2017-05-12 22:40 | DIAGNOSTIC IMAGING REPORT ---
ABD/PELVIS NO IV OR ORAL CONT HISTORY: 81 years-old Female acute abdominal injury status post fall. COMPARISON: CT chest of same day, chest radiograph 02/23/2014. TECHNIQUE: Multiple axial CT images of the abdomen and pelvis were obtained without contrast. A dose lowering technique was used consistent with the principals of JUDIT. FINDINGS: Subsegmental linear atelectasis involves the left lower lobe. There is a calcified granuloma of the right lower lobe. There is no pneumoperitoneum. Imaged inferior cardiac chambers are unremarkable. There is diffuse fatty infiltration of the liver. The spleen, gallbladder and right adrenal gland are unremarkable. There is nodular thickening of the left adrenal gland. There is at least moderate diffuse pancreatic atrophy. Cortical thinning of the left kidney is noted. No renal calculi or hydronephrosis identified. Urinary bladder is distended. Uterus appears to be age appropriate. There is moderate atherosclerotic plaquing and tortuosity of the abdominal aorta. No bulky adenopathy. There is a small sliding-type hiatal hernia. There is no bowel obstruction. Noninflamed colonic diverticula are present. The appendix appears normal. Moderate amount of body wall edema is present. Bones are moderately demineralized which limits evaluation for acute nondisplaced fractures. Moderate degenerative changes involve the hips bilaterally. Levoscoliosis of the lumbar spine is noted. There is remote compression deformity of the L1 vertebral body with 3 mm retropulsion. This compression deformity has been present since at least 02/23/2014. Moderate intervertebral disc space narrowing and facet arthropathy is present at L5-S1. No sacral insufficiency fracture identified. IMPRESSION: 1. No acute intra-abdominal or intrapelvic abnormality identified. No evidence of solid organ injury. 2. Remote compression deformity of the L1 vertebral body. No acute fracture is identified. 3. Additional incidental findings as above. The above report was generated using voice recognition software. It may contain grammatical, syntax or spelling errors. Electronically signed by: Michael Iglesias M.D. 05/12/2017 10:38 PM Dictated Date/Time: 05/12/2017 10:33 PM
[2017-05-12] MEDS ORDERED: ACETAMINOPHEN 325 MG TAB PO PRN (23:15)
[2017-05-12] MEDS ORDERED: ONDANSETRON INJ 2 MG/ML 2 ML VIAL IV PRN (23:15)
--- NOTE | 2017-05-12 23:16 | History and Physical ---
History & Physical Date & Time of Service: May 12, 2017 at 23:16 Chief Complaint: FALL Primary Care Physician: No Doctor, Assigned History of Present Illness Source: patient, friend Mrs Garduno is a 81-year-old female with known alcoholism, frequent falls, and history of breast cancer who presents after an unresponsive episode at home. The patient says she fell after getting up from a chair and hit her head on the roof of her fireplace. She reports she felt stupid for the incident. She denied having drank the last few days. She reports she usually drinks J&B whiskey. She does not feel she has an issue with alcohol misuse. History was also obtained from the patient's neighbor, who is also her POA, who found her. The patient's neighbor reports that she noticed that newspaper had not been picked up today, so she went into her house. She found blood all over the living room floor. She found the patient laying without any clothes on from the waist L near her bed. The patient was responsive but report reported her back hurt so she couldn't get up. She argued with the patient about coming to the hospital, the patient did not want to come in initially. Eventually they agreed an ambulance was called. According to the pts pharmacy, she does not take any of her medications. She is apparently prescribed Prozac. She is also apparently diabetic. Neighbor and neighbor's daughter report that the patient has had between 10 and 19 large bottles of whiskey in her house on multiple occasions. They say that she does not eat much, and she just drinks orange juice. They report she has had falls frequently, and she does not always seek medical attention for them. Police were notified at one point, and reportedly informed office of aging. The patient is also somewhat abusive verbally to the neighbor at times. Past Medical/Surgical History Medical Problems: (1) Breast cancer Status: Chronic (2) Vitamin B12 deficiency Status: Chronic PSHx None Family History No pertinent family history Social History Lives alone in a house in [place]. She previously moved here from [place] many years ago when she got . 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 Her a few years ago. Smoking Status: Former Smoker Smokeless Tobacco Use: No Alcohol Use: heavy Drug Use: none Marital Status: Housing status: lives alone Occupational Status: retired Immunizations History of Influenza Vaccine: No History of Tetanus Vaccine?: unknown History of Pneumococcal: No History of Hepatitis B Vaccine: No Multi-Drug Resistant Organisms History of MDRO: No Allergies Coded Allergies: Penicillins (Verified Allergy, Mild, 05/12/17) Sulfa Drugs (Verified Adverse Reaction, Unknown, GI SYMPTOMS, 05/12/17) Home Medications Scheduled Anastrozole (Arimidex), 1 MG PO DAILY Calcium Citrate-Vitamin D (Citracal + D3 Maximum), Unknown Dose PO DIRECTED Cyanocobalamin (Vitamin B12), 1,000 MCG PO DIRECTED Felodipine (Plendil), 5 MG PO DAILY Gemfibrozil (Lopid), 600 MG PO BID Metformin Hcl (Glucophage), 500 MG PO DAILY Sertraline (Zoloft), 50 MG PO DAILY Simvastatin (Zocor), 50 MG PO QPM Review of Systems See HPI for pertinent positives & negatives. A total of 10 systems reviewed and were otherwise negative. Physical Exam Vital Signs Date Time Temp Pulse Resp B/P (MAP) Pulse Ox O2 Delivery O2 Flow Rate FiO2 05/12/17 21:46 88 18 100 05/12/17 21:30 137/81 05/12/17 21:16 90 19 99 05/12/17 21:04 127/87 05/12/17 20:16 89 25 100 05/12/17 20:11 85 15 100 05/12/17 20:00 132/75 05/12/17 19:41 93 28 100 05/12/17 19:36 94 21 97 05/12/17 19:30 106/92 05/12/17 19:29 92 05/12/17 19:20 143/86 05/12/17 19:06 36.8 91 16 143/86 96 Room Air General Appearance: WD/WN, no apparent distress, + cachetic, + thin Head: normocephalic, atraumatic Eyes: normal inspection, PERRL ENT: hearing grossly normal Neck: supple, no JVD Respiratory/Chest: lungs clear, normal breath sounds, no respiratory distress Cardiovascular: regular rate, rhythm, no murmur, normal peripheral pulses Abdomen/GI: normal bowel sounds, non tender, soft Back: no CVA tenderness, no muscle spasm Extremities/Musculoskelatal: no calf tenderness, no pedal edema Neurologic/Psych: alert, normal mood/affect, oriented x 3 Skin: normal color, no rash Diagnostics Laboratory Results Results Past 24 Hours Test 05/12/17 20:50 05/12/17 20:53 05/12/17 22:38 Range/Units White Blood Count 17.05 4.8-10.8 K/uL Red Blood Count 3.23 4.2-5.4 M/uL Hemoglobin 10.8 12.0-16.0 g/dL Hematocrit 30.9 37-47 % Mean Corpuscular Volume 95.7 80-100 fL Mean Corpuscular Hemoglobin 33.4 25-34 pg Mean Corpuscular Hemoglobin Concent 35.0 32-36 g/dl Platelet Count 153 130-400 K/uL Mean Platelet Volume 10.6 7.4-10.4 fL Neutrophils (%) (Auto) 91.6 % Lymphocytes (%) (Auto) 3.7 % Monocytes (%) (Auto) 3.9 % Eosinophils (%) (Auto) 0.0 % Basophils (%) (Auto) 0.1 % Neutrophils # (Auto) 15.62 1.4-6.5 K/uL Lymphocytes # (Auto) 0.63 1.2-3.4 K/uL Monocytes # (Auto) 0.67 0.11-0.59 K/uL Eosinophils # (Auto) 0.00 0-0.5 K/uL Basophils # (Auto) 0.01 0-0.2 K/uL RDW Standard Deviation 47.6 36.4-46.3 fL RDW Coefficient of Variation 13.6 11.5-14.5 % Immature Granulocyte % (Auto) 0.7 % Immature Granulocyte # (Auto) 0.12 0.00-0.02 K/uL Prothrombin Time 10.0 9.0-12.0 SECONDS Prothromb Time International Ratio 0.9 0.9-1.1 Sodium Level 138 136-145 mmol/L Potassium Level 4.0 3.5-5.1 mmol/L Chloride Level 103 98-107 mmol/L Carbon Dioxide Level 24 21-32 mmol/L Anion Gap 11.0 14.0 16-25 mmol/L Blood Urea Nitrogen 10 7-18 mg/dl Creatinine 0.97 0.60-1.20 mg/dl Est Creatinine Clear Calc Drug Dose 32.9 ml/min Estimated GFR () 64.4 Estimated GFR (Non- 55.5 BUN/Creatinine Ratio 10.6 10-20 Random Glucose 123 70-99 mg/dl Calcium Level 10.0 8.5-10.1 mg/dl Total Bilirubin 1.0 0.2-1 mg/dl Aspartate Amino Transf (AST/SGOT) 62 15-37 U/L Alanine Aminotransferase (ALT/SGPT) 37 12-78 U/L Alkaline Phosphatase 106 45-117 U/L Total Creatine Kinase 248 26-192 U/L Troponin I 0.017 0-0.045 ng/ml Total Protein 6.5 6.4-8.2 gm/dl Albumin 3.3 3.4-5.0 gm/dl Globulin 3.2 2.5-4.0 gm/dl Albumin/Globulin Ratio 1.0 0.9-2 Bedside Hemoglobin 12.2 12.0-16.0 g/dl Bedside Hematocrit 36 37-47 % Bedside Sodium 133 135-144 mEq/L Bedside Potassium 5.4 3.3-5.0 mEq/L Bedside Chloride 105 101-112 mEq/L Bedside Total CO2 22 24-31 mEq/l Bedside Blood Urea Nitrogen 11 7-18 mg/dl Bedside Creatinine 0.9 0.6-1.3 mg/dl Bedside Glucose (other) 133 70-99 mg/dl Bedside Ionized Calcium (Silvino) 1.19 1.12-1.32 mmol/l Ethyl Alcohol mg/dL < 3.0 0-3 mg/dl Diagnostic Radiology CT HEAD IMPRESSION: 1. No acute intracranial abnormality. 2. Age-related findings of atrophy and chronic microvascular ischemic changes. CXR IMPRESSION: 1. No acute cardiopulmonary process. 2. No acute displaced rib fracture or pneumothorax identified. CT CHEST IMPRESSION: 1. No acute intrathoracic abnormality. 2. No acute fracture identified. 3. Remote compression deformity of L1 appears unchanged dating back to at least 02/23/2014. 4. Additional incidental findings as above. C SPINE CT IMPRESSION: 1. No acute cervical spine fracture or subluxation. 2. Remote healed fractures of the C3, C4 and C5 levels are noted. 3. Multilevel facet arthropathy is noted in addition to uncovertebral spurring and posterior disc osteophyte complex formation as above without high-grade central canal or foraminal narrowing identified. CT ABD/PELVIS IMPRESSION: 1. No acute intra-abdominal or intrapelvic abnormality identified. No evidence of solid organ injury. 2. Remote compression deformity of the L1 vertebral body. No acute fracture is identified. 3. Additional incidental findings as above. Normal EKG Impression Assessment and Plan 81-year-old female with known alcohol misuse presents after an unwitnessed syncopal episode. Differential includes arrhythmia, alcohol intoxication, dehydration. Syncopal event - Telemetry monitoring - Neuro checks - IV fluids at 150mL/hr x 2 bags - Orthostatic vitals - PT/OT evaluations Alcohol misuse - Alcohol level 0 at this time - She is also not demonstrating any signs of withdrawal. If she does we will start her on AWSS protocol. Hx of DM - BSGs AC and HS Depression - Consider psych eval Dispo: Tele Obs on Med/Surg Code status - Full for now - POA was unsure on pts preferred code status is. Attending Addendum: I have physically seen and examined this patient, have supervised the medical residents activities, and agree with the H&P as noted above with the following exceptions: NONE The patient is awake, alert and oriented 3, cachectic and thin, blood present in the left side of her head, lying in bed and in no acute distress. HEENT--PERRL, EOMI, mucous membranes and oropharynx dry. Neck--supple, no JVD or bruits, thyroid normal, trachea midline, no adenopathy. Heart--normal S1 and S2, no extra beats, no murmurs, rubs or gallops. Lungs--clear bilaterally, but decreased breath sounds throughout, no respiratory distress, no accessory muscle use. Abdomen--normal bowel sounds and soft, nontender and nondistended, no hernias or masses, no organomegaly. Extremities--no cyanosis, clubbing or edema. There are good distal pulses b/l. Dermatologic--normal skin turgor, normal color, warm and dry, no abnormal lymph nodes, no rash. Neurologic--cranial nerves II through XII grossly intact. Rheumatologic--normal range of motion, nontender, muscles and joints. Psychiatric--normal affect. Assessment and Plan: 1. Syncope--The patient will be admitted to telemetry for serial cardiac enzymes, cardiac rhythm monitoring and a 2-D echocardiogram with Dopplers. Neuro checks every 4 hours. Orthostatic vital signs. Consult socially responsible investment adviser/PT/OT/neurology. IV fluids at 150 ML's per hour for 2 L. Her POA and neighbor are concerned about her safety at home. She will likely need some form of inpatient rehabilitation and help with her long-term determination of housing status for the future. Level of Care Telemetry Advanced Directives Existing Advance Directive: No Existing Living Will: No Existing Power of Concrete Pipe Machine Operator: No Resuscitation Status FULL RESUSCITATION VTE Prophylaxis VTE Risk Assessment Done? Y/N: Yes Risk Level: Moderate Given or contraindicated: SCD's Resident Tracking Resident Involvement: Resident Care Provided Care Provided: Adult Hospital Medicine
[2017-05-13] VITALS (8 sets, daily range): BP systolic 97–145; BP diastolic 55–75; PULSE 68–108; TEMP 36.8–37; O2SAT 92–100; Ht 160 cm; Wt 43.5 kg
[2017-05-13] MEDS ORDERED: IV FLUIDS COMPLETED PRN (00:15)
[2017-05-13] MEDS ORDERED: NSS + 20MEQ KCL 1000ML 1,000 ML IV SCH (01:00)
[2017-05-13] MEDS ORDERED: GLUCOSE 10 TABS/TUBE ONE (07:19)
--- NOTE | 2017-05-13 18:54 | Progress Note ---
Subjective Date of Service: May 13, 2017. Subjective Patient is doing well has some pain surrounding her head laceration voices requests to go home does admit to living alone but having help with her neighbors, is not interested in talking about her alcohol intake Problem List Medical Problems: (1) Alcohol abuse Status: Acute (2) Contusion of multiple sites Status: Acute (3) Dehydration Status: Acute (4) Frequent falls Status: Acute (5) Scalp laceration Status: Acute (6) Weakness Status: Acute Review of Systems ROS: well nourished well developed despite history of not eating much No double vision blurry vision despite recent head laceration No problems with speech or swallowing No palpitations, chest pain or pressure No Wheezing or breathing issues No abdominal pain nausea vomiting diarrhea changes in appetite or weight No burning urine urine frequency or changes in color No focal joint pain or muscle pain No skin rashes or oral lesions Has bruising to her head where she struck her fireplace No focused back pain or numbness or loss of strength No changes in memory or confusion Objective Vital Signs Date Time Temp Pulse Resp B/P (MAP) Pulse Ox O2 Delivery O2 Flow Rate FiO2 05/13/17 16:00 Room Air 05/13/17 15:15 36.8 68 18 100/64 (76) 100 Room Air 05/13/17 12:00 100 Room Air 05/13/17 11:09 37.0 72 18 97/58 (71) 100 Room Air 05/13/17 08:00 100 Room Air 05/13/17 07:30 36.8 76 18 116/71 (86) 100 Room Air 05/13/17 04:00 Room Air 05/13/17 03:27 36.8 81 18 118/71 (87) 92 Room Air 05/13/17 00:29 92 145/75 (98) 91 114/70 (85) 108 108/69 (82) 05/13/17 00:29 36.9 92 22 145/75 99 Room Air 05/13/17 00:04 83 18 120/73 100 05/12/17 21:46 88 18 100 05/12/17 21:30 137/81 05/12/17 21:16 90 19 99 05/12/17 21:04 127/87 05/12/17 20:16 89 25 100 05/12/17 20:11 85 15 100 05/12/17 20:00 132/75 05/12/17 19:41 93 28 100 05/12/17 19:36 94 21 97 05/12/17 19:30 106/92 05/12/17 19:29 92 05/12/17 19:20 143/86 05/12/17 19:06 36.8 91 16 143/86 96 Room Air Physical Exam General Appearance: WD/WN, + mild distress Eyes: PERRL, EOMI Neck: supple, no JVD Respiratory/Chest: chest non-tender, lungs clear, normal breath sounds Cardiovascular: regular rate, rhythm, no murmur Abdomen: normal bowel sounds, non tender, soft Extremities: no pedal edema, no calf tenderness Laboratory Results Last 24 Hours Test 05/12/17 20:50 05/12/17 20:53 05/12/17 22:38 05/13/17 07:02 White Blood Count 17.05 K/uL Red Blood Count 3.23 M/uL Hemoglobin 10.8 g/dL Hematocrit 30.9 % Mean Corpuscular Volume 95.7 fL Mean Corpuscular Hemoglobin 33.4 pg Mean Corpuscular Hemoglobin Concent 35.0 g/dl Platelet Count 153 K/uL Mean Platelet Volume 10.6 fL Neutrophils (%) (Auto) 91.6 % Lymphocytes (%) (Auto) 3.7 % Monocytes (%) (Auto) 3.9 % Eosinophils (%) (Auto) 0.0 % Basophils (%) (Auto) 0.1 % Neutrophils # (Auto) 15.62 K/uL Lymphocytes # (Auto) 0.63 K/uL Monocytes # (Auto) 0.67 K/uL Eosinophils # (Auto) 0.00 K/uL Basophils # (Auto) 0.01 K/uL RDW Standard Deviation 47.6 fL RDW Coefficient of Variation 13.6 % Immature Granulocyte % (Auto) 0.7 % Immature Granulocyte # (Auto) 0.12 K/uL Prothrombin Time 10.0 SECONDS Prothromb Time International Ratio 0.9 Sodium Level 138 mmol/L Potassium Level 4.0 mmol/L Chloride Level 103 mmol/L Carbon Dioxide Level 24 mmol/L Anion Gap 11.0 mmol/L 14.0 mmol/L Blood Urea Nitrogen 10 mg/dl Creatinine 0.97 mg/dl Est Creatinine Clear Calc Drug Dose 32.9 ml/min Estimated GFR () 64.4 Estimated GFR (Non- 55.5 BUN/Creatinine Ratio 10.6 Random Glucose 123 mg/dl Calcium Level 10.0 mg/dl Total Bilirubin 1.0 mg/dl Aspartate Amino Transf (AST/SGOT) 62 U/L Alanine Aminotransferase (ALT/SGPT) 37 U/L Alkaline Phosphatase 106 U/L Total Creatine Kinase 248 U/L Troponin I 0.017 ng/ml Total Protein 6.5 gm/dl Albumin 3.3 gm/dl Globulin 3.2 gm/dl Albumin/Globulin Ratio 1.0 Bedside Hemoglobin 12.2 g/dl Bedside Hematocrit 36 % Bedside Sodium 133 mEq/L Bedside Potassium 5.4 mEq/L Bedside Chloride 105 mEq/L Bedside Total CO2 22 mEq/l Bedside Blood Urea Nitrogen 11 mg/dl Bedside Creatinine 0.9 mg/dl Bedside Glucose (other) 133 mg/dl Bedside Ionized Calcium (Silvino) 1.19 mmol/l Ethyl Alcohol mg/dL < 3.0 mg/dl Bedside Glucose 61 mg/dl Test 05/13/17 07:17 05/13/17 07:44 05/13/17 11:00 Bedside Glucose 69 mg/dl 97 mg/dl 73 mg/dl Assessment and Plan 81-year-old female who lives alone and fell striking her head with a laceration history of alcohol intake and poor by mouth intake next Despite her history her laboratories are remarkably normal her CT scans are unremarkable with exception of old fractures in the cervical and lumbar areas. She states she never remembers having fractured her cervical spine. She desires to return home. We will also provide supportive care stop IV fluids watch for and call withdrawal and provide PT OT evaluation DVT prevention is early ambulation when safe or SCDs
[2017-05-14 07:28] VITALS: BP 93/52; PULSE 65; TEMP 36.9; O2SAT 98
--- NOTE | 2017-05-14 11:46 | Discharge Instructions ---
Discharge Instructions Date of Service May 14, 2017. Admission Reason for Admission: Syncope And Collapse Discharge Discharge Diagnosis / Problem: fall with forehead contusion/laceration Discharge Goals Goal(s): Diagnostic testing, Therapeutic intervention Activity Recommendations Activity Limitations: resume your previous activity . Current Hospital Diet Patient's current hospital diet: AHA Diet (Heart Healthy), Diabetes Type 2 Diet Discharge Diet Recommended Diet: Regular Diet Pending Studies Studies pending at discharge: no Medical Emergencies . Who to Call and When: Medical Emergencies: If at any time you feel your situation is an emergency, please call 911 immediately. . Non-Emergent Contact Non-Emergency issues call your: Primary Care Provider Call Non-Emergent contact if: temperature is above 101, your pain is unusual for you . . "Provider Documentation" section prepared by Gordo Ortega. . VTE Core Measure Inpt VTE Proph given/why not?: SCD's
[2017-05-14 12:03] VITALS: BP 93/52; PULSE 65; TEMP 36.9; O2SAT 98
--- NOTE | 2017-05-14 19:20 | Discharge Summary ---
Discharge Summary Date of Service May 14, 2017. Discharge Summary Admission Date: May 12, 2017 at 23:15 Discharge Date: May 14, 2017 Discharge Disposition: Home with services Principal Diagnosis: fall head lacertation Immunizations: Have You Had Influenza Vaccine: No History of Tetanus Vaccine?: unknown History of Pneumococcal: No History of Hepatitis B Vaccine: No Medication Reconciliation Continued Medications: Anastrozole (Arimidex) 1 Mg Tab 1 MG PO DAILY, TAB Calcium Citrate-Vitamin D (Citracal + D3 Maximum) 1 Tab Tab Unknown Dose PO DIRECTED Cyanocobalamin (Vitamin B12) 1,000 Mcg Tab 1000 MCG PO DIRECTED Felodipine (Plendil) 5 Mg Tabcr 5 MG PO DAILY, TAB Gemfibrozil (Lopid) 600 Mg Tab 600 MG PO BID, TAB Sertraline (Zoloft) 50 Mg Tab 50 MG PO DAILY, TAB Simvastatin (Zocor) 40 Mg Tab 50 MG PO QPM, TAB Discontinued Medications: Metformin Hcl (Glucophage) 500 Mg Tab 500 MG PO DAILY, TAB Discharge Exam Review of Systems: Constitutional: No fever, No chills Respiratory: No cough, No sputum, No wheezing Cardiovascular: No chest pain, No orthopnea Abdomen: No pain, No nausea, No vomiting Musculoskeletal: No joint pain, No muscle pain, No swelling Physical Exam: General Appearance: WD/WN, no apparent distress Eyes: PERRL, EOMI Neck: supple, no JVD Respiratory/Chest: chest non-tender, lungs clear, normal breath sounds Cardiovascular: no JVD, no murmur Neurologic/Psychiatric: alert, oriented x 3 Hospital Course 81-year-old female who lives alone and fell striking her head with a laceration history of alcohol intake and poor by mouth intake next Despite her history her laboratories are remarkably normal her CT scans are unremarkable with exception of old fractures in the cervical and lumbar areas. She states she never remembers having fractured her cervical spine. She desires to return home, PT feels this is reasonable, will supply a walker pt does not need new Rx per her. Total Time Spent: Greater than 30 minutes This includes examination of the patient, discharge planning, medication reconciliation, and communication with other providers. Discharge Instructions Please refer to the electronic Patient Visit Report (Discharge Instructions) for additional information.
[2017-06-23] MEDS ORDERED: VTMB12 PO (13:53)
[2017-06-23] MEDS ORDERED: FOLI1TAB7 PO (13:53)
[2017-06-23] MEDS ORDERED: CHOL2000 PO (13:53)
[2017-06-23] MEDS ORDERED: THM100 PO (13:53)
[2017-06-23] MEDS ORDERED: MULT-589 PO (13:53)
[2017-06-23] MEDS ORDERED: MGNO400 PO (13:53)
== END 2017-05-14 17:34 | disposition home or self-care (01) ==
LOC: C.EDB 19:22 → C.2T 23:15 → ENRESERV 23:25 → C.4E 05-13 13:14
PROVIDERS: ADMIT Hospitalist; ATTEND Internal Medicine
DX: S01.01XA Laceration without foreign body of scalp, initial encounter (principal); S20.229A Contusion of unspecified back wall of thorax, initial encounter; W18.00XA Striking against unspecified object with subsequent fall, initial encounter; W19.XXXA Unspecified fall, initial encounter; Y92.018 Other place in single-family (private) house as the place of occurrence of the external cause; R53.1 Weakness; R29.6 Repeated falls; R55 Syncope and collapse; F32.9 Major depressive disorder, single episode, unspecified; R64 Cachexia; E86.0 Dehydration; F10.10 Alcohol abuse, uncomplicated; E53.8 Deficiency of other specified B group vitamins; Z85.3 Personal history of malignant neoplasm of breast; Z87.891 Personal history of nicotine dependence; Z79.899 Other long term (current) drug therapy

== ENCOUNTER 2017-06-19 14:16 | Observation (INO) | payer BC, OTHER ==
[~2017-06-19] VITALS: Ht 157.5 cm; Wt 46.2 kg
[~2017-06-19 14:16] MED LIST changes: +CALC1TAB9 PO; -CALCTAB7 PO; +CYAN100020 PO; -DOCU100C31 PO; +FELO5TAB PO; -GLC/500 PO; -POTA12PO5 PO; -SENN1TAB77 PO; -Vit D PO
[2017-06-19] MEDS ORDERED: SODIUM CHLORIDE 0.9% 1000ML 500 ML IV STA (14:29)
[2017-06-19] MEDS ORDERED: SODIUM CHLORIDE 0.9% 1000ML 1,000 ML IV ONE (14:29)
[2017-06-19 14:54] LABS: BASO % 0.3 %; BASO ABS # 0.02 K/uL (0-0.2); COMPLETE YES; EOS % 0.2 %; IG% 0.3 %; LYMPH % 14.7 %; LYMPH ABS # 0.93 K/uL (1.2-3.4); MEAN CELL VOLUME 101.7 fL (80-100); MEAN CORPUSCULAR HEMOGLOBIN 33.3 pg (25-34); MEAN CORPUSCULAR HGB CONC 32.8 g/dl (32-36); MEAN PLATELET VOLUME 10.6 fL (7.4-10.4); MONO % 3.2 %; NEUT % 81.3 %; PLATELET COUNT 197 K/uL (130-400); RED BLOOD COUNT 3.54 M/uL (4.2-5.4); WHITE BLOOD COUNT 6.34 K/uL (4.8-10.8)
--- NOTE | 2017-06-19 14:57 | EMERGENCY ROOM VISIT NOTE ---
History Report prepared by Kole: Kael Navas Under the Supervision of: Dr. French Loza M.D. First contact with patient: 14:19 History of Present Illness The patient is a 81 year old female who presents to the Emergency Room with complaints of a resolved syncopal episode that occurred prior to arrival. EMS states the patient was found in the [facility] parking lot, laying across the seat of her car, unresponsive. They report the patient was unconscious for about five minutes and has a history of diabetes mellitus. EMS notes she was given an oral glucose tablet. The patient states that she feels okay. She reports that she was not home and was going to [facility] to get her breakfast. The patient notes that she thinks she fell. She states that she has been experiencing upper back pain for the past two days, especially when she moves too fast. She denies feeling sick, fevers, headaches, trauma, abdominal pain, chest pain, shortness of breath, numbness, weakness, diarrhea, vomiting, hematuria, and dysuria. Source of History: patient, EMS Onset: prior to arrival Position: other (global) Quality: other (syncope) Timing: resolved Associated Symptoms: + back pain, No fevers, No headache, No chest pain, No SOB, No vomiting, No abdominal pain, No diarrhea, No weakness, No numbness Note: She denies feeling sick, trauma, hematuria, and dysuria. Review of Systems See HPI for pertinent positives & negatives. A total of 10 systems reviewed and were otherwise negative. Past Medical & Surgical Medical Problems: (1) Breast cancer (2) Syncope and collapse (3) Vitamin B12 deficiency Old medical records were reviewed. Nurse's notes were reviewed and I agree with. Family History Patient reports no known family medical history. Social History Smoking Status: Former Smoker Alcohol Use: heavy, other Drug Use: none Marital Status: Housing Status: lives alone Occupation Status: retired Current/Historical Medications Scheduled Anastrozole (Arimidex), 1 MG PO DAILY Calcium Citrate-Vitamin D (Citracal + D3 Maximum), Unknown Dose PO DIRECTED Cyanocobalamin (Vitamin B12), 1,000 MCG PO DIRECTED Felodipine (Plendil), 5 MG PO DAILY Gemfibrozil (Lopid), 600 MG PO BID Sertraline (Zoloft), 50 MG PO DAILY Simvastatin (Zocor), 40 MG PO QPM Allergies Coded Allergies: Penicillins (Verified Allergy, Mild, 06/19/17) Sulfa Drugs (Verified Adverse Reaction, Unknown, GI SYMPTOMS, 06/19/17) Physical Exam Vital Signs Date Time Temp Pulse Resp B/P (MAP) Pulse Ox O2 Delivery O2 Flow Rate FiO2 06/19/17 18:12 71 18 112/65 100 Room Air 06/19/17 17:19 74 130/64 78 125/59 88 117/84 06/19/17 17:15 81 20 112/67 98 Room Air 06/19/17 15:45 81 20 117/58 100 Room Air 06/19/17 14:31 83 06/19/17 14:30 37.0 84 20 96/55 99 Room Air 06/19/17 14:30 99 Room Air Physical Exam General: Well developed well nourished in no acute distress, breathing comfortably on room air. Normal speech. Slender, somewhat cachetic, older female. Answers questions appropriately HEENT: Normal cephalic atraumatic. Pupils are equal round and reactive to light. Extraocular movements are intact. Oropharynx is pink with moist mucous membranes. No swelling of the mouth lips or tongue. Neck: Supple with a midline trachea. No meningeal signs or stiffness, no JVD or bruits. No Stridor. Chest: Clear to auscultation bilaterally. No wheezes or rhonchi. No increased work of breathing. Heart: regular rate and rhythm. Abdomen: Soft nontender, nondistended without rebound guarding or rigidity. Extremities: No cyanosis clubbing or edema. No calf tenderness or assymetry Spine/Back. Non tender to palpation. No CVA tenderness Skin: Good turgor without rashes. Neurologic exam: Cranial nerves two through 12 are intact. Motor and sensation are intact and symmetrical throughout. Alert and oriented x3. No tremor. Medical Decision & Procedures ER Provider Diagnostic Interpretation: Radiology results as stated below per my review and radiologist interpretation: CT HEAD WITHOUT CONTRAST (CT) CLINICAL HISTORY: Acute altered level of consciousness. COMPARISON STUDY: 05/12/2017 TECHNIQUE: Axial CT of the brain is performed from the vertex to the skull base. IV contrast was not administered for this examination. A dose lowering technique was utilized adhering to the principles of ALARA. CT DOSE: 638.56 mGycm FINDINGS: No intra or extra-axial mass lesions are visualized. There is no CT evidence of acute cortical infarction. There is no evidence of midline shift. There is no acute hemorrhage. No calvarial fractures are visualized. There are patchy white matter hypodensities likely on a small vessel basis. There is no evidence of pathologic ventricular dilatation. 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 There is no evidence of acute sinusitis. IMPRESSION: No acute intracranial findings Electronically signed by: Wai Hernandez M.D. 06/19/2017 3:36 PM Dictated Date/Time: 06/19/2017 3:35 PM CHEST ONE VIEW PORTABLE CLINICAL HISTORY: Chest pain. COMPARISON STUDY: Chest radiograph and chest CT May 12, 2017. FINDINGS: No pneumothorax or pleural effusion is present. There is no evidence of pulmonary edema. Cardiomediastinal silhouette is normal. Pulmonary vascularity is normal. There are several old right rib fractures. Right axillary surgical clips are incidentally noted. Patient is mildly rotated. IMPRESSION: No acute cardiopulmonary findings. Electronically signed by: Remy Lopes M.D. 06/19/2017 3:37 PM Dictated Date/Time: 06/19/2017 3:36 PM Laboratory Results 06/19/17 14:38 Red Blood Count 3.54, Mean Corpuscular Volume 101.7, Mean Corpuscular Hemoglobin 33.3, Mean Corpuscular Hemoglobin Concent 32.8, Mean Platelet Volume 10.6, Neutrophils (%) (Auto) 81.3, Lymphocytes (%) (Auto) 14.7, Monocytes (%) ( Auto) 3.2, Eosinophils (%) (Auto) 0.2, Basophils (%) (Auto) 0.3, Neutrophils # ( Auto) 5.16, Lymphocytes # (Auto) 0.93, Monocytes # (Auto) 0.20, Eosinophils # ( Auto) 0.01, Basophils # (Auto) 0.02 06/19/17 14:38 Test 06/19/17 14:38 06/19/17 15:23 06/19/17 15:37 06/19/17 16:33 White Blood Count 6.34 K/uL (4.8-10.8) Red Blood Count 3.54 M/uL (4.2-5.4) Hemoglobin 11.8 g/dL (12.0-16.0) Hematocrit 36.0 % (37-47) Mean Corpuscular Volume 101.7 fL (80-100) Mean Corpuscular Hemoglobin 33.3 pg (25-34) Mean Corpuscular Hemoglobin Concent 32.8 g/dl (32-36) Platelet Count 197 K/uL (130-400) Mean Platelet Volume 10.6 fL (7.4-10.4) Neutrophils (%) (Auto) 81.3 % Lymphocytes (%) (Auto) 14.7 % Monocytes (%) (Auto) 3.2 % Eosinophils (%) (Auto) 0.2 % Basophils (%) (Auto) 0.3 % Neutrophils # (Auto) 5.16 K/uL (1.4-6.5) Lymphocytes # (Auto) 0.93 K/uL (1.2-3.4) Monocytes # (Auto) 0.20 K/uL (0.11-0.59) Eosinophils # (Auto) 0.01 K/uL (0-0.5) Basophils # (Auto) 0.02 K/uL (0-0.2) RDW Standard Deviation 49.8 fL (36.4-46.3) RDW Coefficient of Variation 13.2 % (11.5-14.5) Immature Granulocyte % (Auto) 0.3 % Immature Granulocyte # (Auto) 0.02 K/uL (0.00-0.02) Anion Gap 13.0 mmol/L (3-11) Est Creatinine Clear Calc Drug Dose 31.1 ml/min Estimated GFR () 62.8 Estimated GFR (Non- 54.2 BUN/Creatinine Ratio 11.7 (10-20) Calcium Level 9.6 mg/dl (8.5-10.1) Magnesium Level 1.7 mg/dl (1.8-2.4) Total Bilirubin 0.7 mg/dl (0.2-1) Direct Bilirubin 0.2 mg/dl (0-0.2) Aspartate Amino Transf (AST/SGOT) 42 U/L (15-37) Alanine Aminotransferase (ALT/SGPT) 26 U/L (12-78) Alkaline Phosphatase 110 U/L (45-117) Total Protein 6.3 gm/dl (6.4-8.2) Albumin 3.1 gm/dl (3.4-5.0) Lipase 86 U/L (73-393) Chemistry Specimen Hemolysis Ethyl Alcohol mg/dL < 3.0 mg/dl (0-3) Bedside Troponin I < 0.030 ng/ml (0-0.045) Urine Color YELLOW Urine Appearance CLEAR (CLEAR) Urine pH 7.0 (4.5-7.5) Urine Specific [place] 1.017 (1.000-1.030) Urine Protein TRACE (NEG) Urine Glucose (UA) NEG (NEG) Urine Ketones 1+ (NEG) Urine Occult Blood NEG (NEG) Urine Nitrite NEG (NEG) Urine Bilirubin NEG (NEG) Urine Urobilinogen NEG (NEG) Urine Leukocyte Esterase NEG (NEG) Urine WBC (Auto) 1-5 /hpf (0-5) Urine RBC (Auto) 0-4 /hpf (0-4) Urine Hyaline Casts (Auto) 1-5 /lpf (0-5) Urine Epithelial Cells (Auto) 10-20 /lpf (0-5) Urine Bacteria (Auto) NEG (NEG) Test 06/19/17 17:18 Bedside Glucose 114 mg/dl (70-90) Laboratory studies as stated above per my review. Medications Administered Medications (Trade) Dose Ordered Sig/Jenny Route Start Time Stop Time Status Last Admin Dose Admin Sodium Chloride 500 ml @ 999 mls/hr Q31M STAT IV 06/19/17 14:29 06/19/17 14:59 DC 06/19/17 14:29 999 MLS/HR Sodium Chloride 1,000 ml @ 150 mls/hr Q6H40M ONCE IV 06/19/17 14:29 06/19/17 19:13 DC 06/19/17 16:33 150 MLS/HR Magnesium Sulfate (Magnesium Sulfate) 1 gm NOW STAT IV 06/19/17 17:03 06/19/17 17:05 DC 06/19/17 17:14 1 GM ECG Indication: syncope Rate (beats per minute): 79 Rhythm: normal sinus Findings: PAC, no acute ischemic change Comparison ECG Date: 05/14/17 Change: Decreased T-wave amplitude anteriorly. ED Course 1421: Past medical records reviewed. The patient was evaluated in room B02, and a complete history and physical examination were performed. 1429: Ordered Sodium Chloride 1000 ml @ 150 mls/hr IV, Sodium Chloride 500 ml @ 999 mls/hr IV 1452: I reevaluated the patient. She is resting comfortably. I updated her of her current exam findings. 170: I reevaluated the patient. She is resting and would like to go home. I updated her of her current exam findings and lab results. Ordered Magnesium Sulfate 1gm IV. 174: Upon reevaluation, the patient is resting comfortably. I discussed the results and treatment plan with the patient. She verbalized agreement of the treatment plan. The patient will be evaluated for further management. 1751: I [facility] the [facility] She will evaluate the patient for further treatment. Medical Decision Differentials include, but are not limited to; hypoglycemia, trauma, arrhythmia , alcohol complication, electrolyte metabolic abnormality, infection. This patient comes in as described above. She was placed in room B2. She is found unresponsive and was in her car. She has food that she was going to eat they gave her some orange juice and upon arrival, her blood sugar is 61. She was given further when shoes and her blood sugar has remained stable. I do know her from a recent previous visit. She apparently has a long history of drinking alcohol. She denies any trauma or recent illness. I did a CAT scan of her head is unremarkable she has a normal neurologic exam. EKG does not suggest acute coronary syndrome or arrhythmia. She had multiple blood testing obtained her blood sugar did come up. She has nothing to suggest acute cardiac disease. She's had no significant electrode or metabolic abnormalities. Alcohol is negative and clinically and she has nothing to suggest acute withdrawal. I her of reviewed her medication list as well as our pharmacist and there are no medicines that would drop her blood sugar. I do think that given her age and social situation that we should observe her. She was found unresponsive in her car and it may have been that she was hypoglycemic from not eating. We tried to call her friend who is her power of workers compensation defense attorney and could not get a hold of her either. She will be admitted for observation and to rule out a cardiac arrhythmia and other etiologies for her altered mental status episode Medication Reconcilliation Current Medication List: was personally reviewed by me Blood Pressure Screening Patient's blood pressure: Normal blood pressure Blood pressure disposition: Did not require urgent referral Consults Time Called: 1749 Consulting Physician: Dr. Cruz [facility] Hospitalist Returned Call: [phone] I discussed the patient's case [facility]. She will evaluate the patient for further treatment. Impression Primary Impression: Altered mental status Additional Impressions: Syncope Hypoglycemia Scribe Attestation The scribe's documentation has been prepared under my direction and personally reviewed by me in its entirety. I confirm that the note above accurately reflects all work, treatment, procedures, and medical decision making performed by me. Departure Information Dispostion Being Evaluated By Hospitalist Referrals Rodger Arnold M.D. (PCP) Problem Qualifiers
[2017-06-19 15:14] LABS: BUN/CREATININE RATIO 11.7 (10-20); CALCIUM 9.6 mg/dl (8.5-10.1); CREATININE 0.99 mg/dl (0.60-1.20); POTASSIUM 4.6 mmol/L (3.5-5.1)
--- NOTE | 2017-06-19 15:37 | DIAGNOSTIC IMAGING REPORT ---
CT HEAD WITHOUT CONTRAST (CT) CLINICAL HISTORY: Acute altered level of consciousness. COMPARISON STUDY: 05/12/2017 TECHNIQUE: Axial CT of the brain is performed from the vertex to the skull base. IV contrast was not administered for this examination. A dose lowering technique was utilized adhering to the principles of ALARA. CT DOSE: 638.56 mGycm FINDINGS: No intra or extra-axial mass lesions are visualized. There is no CT evidence of acute cortical infarction. There is no evidence of midline shift. There is no acute hemorrhage. No calvarial fractures are visualized. There are patchy white matter hypodensities likely on a small vessel basis. There is no evidence of pathologic ventricular dilatation. 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 There is no evidence of acute sinusitis. IMPRESSION: No acute intracranial findings Electronically signed by: Wai Hernandez M.D. 06/19/2017 3:36 PM Dictated Date/Time: 06/19/2017 3:35 PM
--- NOTE | 2017-06-19 15:39 | DIAGNOSTIC IMAGING REPORT ---
CHEST ONE VIEW PORTABLE CLINICAL HISTORY: Chest pain. COMPARISON STUDY: Chest radiograph and chest CT May 12, 2017. FINDINGS: No pneumothorax or pleural effusion is present. There is no evidence of pulmonary edema. Cardiomediastinal silhouette is normal. Pulmonary vascularity is normal. There are several old right rib fractures. Right axillary surgical clips are incidentally noted. Patient is mildly rotated. IMPRESSION: No acute cardiopulmonary findings. Electronically signed by: Remy Lopes M.D. 06/19/2017 3:37 PM Dictated Date/Time: 06/19/2017 3:36 PM
[2017-06-19 16:27] LABS: MAGNESIUM 1.7 mg/dl (1.8-2.4)
[2017-06-19 16:55] LABS: URINE APPEARANCE CLEAR (CLEAR); URINE BILIRUBIN NEG (NEG); URINE COLOR YELLOW; URINE NITRITE NEG (NEG); URINE SPECIFIC GRAVITY 1.017 (1.000-1.030); UROBILINOGEN NEG (NEG)
[2017-06-19 16:56] LABS: MANUAL MICROSCOPIC REQUIRED? NO; REVIEW REQ? NO
[2017-06-19] MEDS ORDERED: MAGNESIUM SULFATE 1GM / D5W 1 GM BAG IV STA (17:03)
[2017-06-19] MEDS ORDERED: ACETAMINOPHEN 325 MG TAB PO PRN (18:30)
[2017-06-19] MEDS ORDERED: ONDANSETRON INJ 2 MG/ML 2 ML VIAL IV PRN (18:30)
[2017-06-19] MEDS ORDERED: MAGNESIUM HYDROXIDE SUSP 30 ML UDC PO PRN (18:30)
[2017-06-19] MEDS ORDERED: IV FLUIDS COMPLETED PRN (18:45)
--- NOTE | 2017-06-19 18:49 | History and Physical ---
History & Physical Date & Time of Service: Jun 19, 2017 at 18:35 Chief Complaint: Primary Care Physician: Rodger Arnold M.D. History of Present Illness Source: patient 81 y/o F who was brought to [facility] after being found unresponsive in her car at the [employer]. Pt states that most of yesterday was a normal day for her, but later in the day she began to feel "yucky". She describes this as just unwell. She did not go for her usual walk around her [place] due to this. She was sitting , reading her paper before bed when she felt dizzy. She decided to just go to bed, but woke up dizzy again this AM. This is describes as lightheaded rather than room spinning. Her usual breakfast is either cereal or orange juice, which she was out of, so she went to the [employer] for these items. She remembers shopping, but that is the last thing she remembers. She states she ate dinner yesterday around 4pm and describes some sort of meat dish that she cooked in the over. She states she had diarrhea when she woke up this AM, but none since. Pt denies fever, SOB, chest pain, abd pain, n/v, LE pain or swelling. Pt states that she does have other lightheaded spells on occasion, so she does not take her walk or go into her basement as she is afraid of falling. Pt states she does have one scotch drink about 1 time per week on Thursday or Thursday. She denies having anything to drink yesterday. Pt states she is only currently taking her zocor and vitamins and arimidex because the other medicines "made me feel yucky". She has the prescriptions at home however. Pt is frustrated at her current situation at present, but her biggest concerns are the fact that her car is in the [employer] parking lot and she wants to be sure to have her groceries put in the refrigerator today. Past Medical/Surgical History Medical Problems: (1) Breast cancer Status: Chronic (2) Vitamin B12 deficiency Status: Chronic Pt should also be taking medications for HTN, depression but does not Family History Patient reports no known family medical history. Social History Smoking Status: Never Smoker Alcohol Use: occasionally (1 scotch 1 time per week) Drug Use: none Marital Status: Housing status: lives alone Occupational Status: retired Immunizations History of Influenza Vaccine: No History of Tetanus Vaccine?: unknown History of Pneumococcal: No History of Hepatitis B Vaccine: No Multi-Drug Resistant Organisms History of MDRO: No Allergies Coded Allergies: Penicillins (Verified Allergy, Mild, 06/19/17) Sulfa Drugs (Verified Adverse Reaction, Unknown, GI SYMPTOMS, 06/19/17) Home Medications Scheduled Anastrozole (Arimidex), 1 MG PO DAILY Calcium Citrate-Vitamin D (Citracal + D3 Maximum), Unknown Dose PO DIRECTED Cyanocobalamin (Vitamin B12), 1,000 MCG PO DIRECTED Felodipine (Plendil), 5 MG PO DAILY Gemfibrozil (Lopid), 600 MG PO BID Sertraline (Zoloft), 50 MG PO DAILY Simvastatin (Zocor), 50 MG PO QPM Review of Systems Pertinent positives and negatives reviewed in HPI--all others negative Physical Exam Vital Signs Date Time Temp Pulse Resp B/P (MAP) Pulse Ox O2 Delivery O2 Flow Rate FiO2 06/19/17 18:12 71 18 112/65 100 Room Air 06/19/17 17:19 74 130/64 78 125/59 88 117/84 06/19/17 17:15 81 20 112/67 98 Room Air 06/19/17 15:45 81 20 117/58 100 Room Air 06/19/17 14:31 83 06/19/17 14:30 37.0 84 20 96/55 99 Room Air 06/19/17 14:30 99 Room Air General Appearance: no apparent distress, + thin Head: normocephalic, atraumatic Eyes: normal inspection, EOMI ENT: hearing grossly normal Neck: supple Respiratory/Chest: normal breath sounds, no respiratory distress Cardiovascular: regular rate, rhythm, no edema Abdomen/GI: non tender, soft Extremities/Musculoskelatal: no calf tenderness, no pedal edema Neurologic/Psych: technology trainer II-XII nml as tested, alert, normal mood/affect, oriented x 3 Skin: normal color, warm/dry Diagnostics Laboratory Results Results Past 24 Hours Test 06/19/17 14:24 06/19/17 14:38 06/19/17 14:58 06/19/17 15:23 Range/Units Bedside Glucose 61 95 70-90 mg/dl White Blood Count 6.34 4.8-10.8 K/uL Red Blood Count 3.54 4.2-5.4 M/uL Hemoglobin 11.8 12.0-16.0 g/dL Hematocrit 36.0 37-47 % Mean Corpuscular Volume 101.7 80-100 fL Mean Corpuscular Hemoglobin 33.3 25-34 pg Mean Corpuscular Hemoglobin Concent 32.8 32-36 g/dl Platelet Count 197 130-400 K/uL Mean Platelet Volume 10.6 7.4-10.4 fL Neutrophils (%) (Auto) 81.3 % Lymphocytes (%) (Auto) 14.7 % Monocytes (%) (Auto) 3.2 % Eosinophils (%) (Auto) 0.2 % Basophils (%) (Auto) 0.3 % Neutrophils # (Auto) 5.16 1.4-6.5 K/uL Lymphocytes # (Auto) 0.93 1.2-3.4 K/uL Monocytes # (Auto) 0.20 0.11-0.59 K/uL Eosinophils # (Auto) 0.01 0-0.5 K/uL Basophils # (Auto) 0.02 0-0.2 K/uL RDW Standard Deviation 49.8 36.4-46.3 fL RDW Coefficient of Variation 13.2 11.5-14.5 % Immature Granulocyte % (Auto) 0.3 % Immature Granulocyte # (Auto) 0.02 0.00-0.02 K/uL Sodium Level 139 136-145 mmol/L Potassium Level 4.6 3.5-5.1 mmol/L Chloride Level 104 98-107 mmol/L Carbon Dioxide Level 22 21-32 mmol/L Anion Gap 13.0 3-11 mmol/L Blood Urea Nitrogen 12 7-18 mg/dl Creatinine 0.99 0.60-1.20 mg/dl Est Creatinine Clear Calc Drug Dose 31.1 ml/min Estimated GFR () 62.8 Estimated GFR (Non- 54.2 BUN/Creatinine Ratio 11.7 10-20 Random Glucose 63 70-99 mg/dl Calcium Level 9.6 8.5-10.1 mg/dl Magnesium Level 1.7 1.8-2.4 mg/dl Total Bilirubin 0.7 0.2-1 mg/dl Direct Bilirubin 0.2 0-0.2 mg/dl Aspartate Amino Transf (AST/SGOT) 42 15-37 U/L Alanine Aminotransferase (ALT/SGPT) 26 12-78 U/L Alkaline Phosphatase 110 45-117 U/L Total Protein 6.3 6.4-8.2 gm/dl Albumin 3.1 3.4-5.0 gm/dl Lipase 86 73-393 U/L Chemistry Specimen Hemolysis Ethyl Alcohol mg/dL < 3.0 0-3 mg/dl Test 06/19/17 15:37 06/19/17 16:33 06/19/17 17:18 Range/Units Bedside Troponin I < 0.030 0-0.045 ng/ml Urine Color YELLOW Urine Appearance CLEAR CLEAR Urine pH 7.0 4.5-7.5 Urine Specific [place] 1.017 1.000-1.030 Urine Protein TRACE NEG Urine Glucose (UA) NEG NEG Urine Ketones 1+ NEG Urine Occult Blood NEG NEG Urine Nitrite NEG NEG Urine Bilirubin NEG NEG Urine Urobilinogen NEG NEG Urine Leukocyte Esterase NEG NEG Urine WBC (Auto) 1-5 0-5 /hpf Urine RBC (Auto) 0-4 0-4 /hpf Urine Hyaline Casts (Auto) 1-5 0-5 /lpf Urine Epithelial Cells (Auto) 10-20 0-5 /lpf Urine Bacteria (Auto) NEG NEG Bedside Glucose 114 70-90 mg/dl Microbiology Results 06/19/17 Urine Culture, Received Pending Diagnostic Radiology CT head neg for acute CXR neg for acute Impression Assessment and Plan 81 y/o F who was admitted for observation on 06/19 for syncope Syncope: this is pt's second episode in about 5 weeks No known cause noted on that admission BS was borderline on arrival to the ED and not checked in the field, possibly hypoglycemia due to poor PO intake that the liver had compensated for by the time she was brought to [facility]?? ECHO, carotid US pending Trop neg EKG with PACs CT head WNL WBC WNL, afebrile, UA and CXR neg for infectious Orthostatics neg TSH has not been checked since 2014, will check BS ACHS Given this is pt's 2nd episode, if work-up is neg an event monitor should be considered on d/c PE could cause syncope, however pt has no chest pain, SOB, tachycardia, hypoTN, hypoxia--will hold on CTA for now given more likely dx HypoMg: minimal and replaced Does not seem low enough to cause above sx HTN? Pt is supposed to be on plendil, but is unclear why BP have been on the lower side, will not restart Vitamin B12 deficiency: Last checked in 2014 and was 297 Pending with folate Other: Full code Ambulation for DVT proph given likely short duration of stay Reg diet Level of Care Telemetry Resuscitation Status FULL RESUSCITATION VTE Prophylaxis VTE Risk Assessment Done? Y/N: Yes Risk Level: Low
[2017-06-19 19:46] VITALS: BP 109/70; PULSE 82; TEMP 36.7; O2SAT 100; Ht 157.5 cm; Wt 46.2 kg
[2017-06-19] MEDS: SIMVASTATIN 40 MG TAB PO SCH (20:29)
[2017-06-19 23:57] VITALS: BP 114/62; PULSE 62; TEMP 36.6; O2SAT 100
[2017-06-20] VITALS (7 sets, daily range): BP systolic 100–110; BP diastolic 61–68; PULSE 64–77; TEMP 36.5–37.1; O2SAT 97–99
--- NOTE | 2017-06-20 06:16 | DIAGNOSTIC IMAGING REPORT ---
ULTRASOUND OF THE CAROTID ARTERIES CLINICAL HISTORY: syncope COMPARISON STUDY: None. TECHNIQUE: Real-time, grayscale, and color Doppler sonography of the carotid arteries was performed. Imaging reviewed in the transverse and longitudinal planes. NASCET criteria was utilized for stenosis calcification. FINDINGS: There is mild to moderate calcific shadowing atherosclerotic plaque present . The peak systolic velocity within the right internal carotid artery is 78 cm/sec. The systolic velocity ratio of right internal to common carotid artery is 1.1. The peak systolic velocity within the left internal carotid artery is 48 cm/sec. The systolic velocity ratio left internal to common carotid artery is 0.8. Antegrade flow is seen in the vertebral arteries. The external carotid arteries are patent. Blood pressure in the right arm measured 108 mm/Hg. Blood pressure in the left arm measured 112 mm/Hg. IMPRESSION: No evidence of hemodynamically significant carotid stenosis. Electronically signed by: Wai Hernandez M.D. 06/20/2017 6:14 AM Dictated Date/Time: 06/20/2017 6:13 AM
[2017-06-20 06:34] LABS: BUN/CREATININE RATIO 13.6 (10-20); CALCIUM 8.3 mg/dl (8.5-10.1); CREATININE 0.82 mg/dl (0.60-1.20); MAGNESIUM 1.9 mg/dl (1.8-2.4); POTASSIUM 3.7 mmol/L (3.5-5.1)
[2017-06-20 06:49] LABS: THYROID STIMULATING HORMONE 4.91 uIu/ml (0.300-4.500)
[2017-06-20] MEDS ORDERED: PNEUMOCOCCAL ADMINISTRATION CHARGE ONE (08:00)
[2017-06-20] MEDS ORDERED: PNEUMOCOCCAL POLYSACCHARIDES 25 MCG/0.5 ML VIAL/SYR IM. ONE (08:00)
[2017-06-20] MEDS: CYANOCOBALAMIN 500 MCG TAB (VIT B-12) PO SCH (08:31)
[2017-06-20] MEDS: ANASTROZOLE 1 MG TAB PO SCH (08:34)
--- NOTE | 2017-06-20 13:06 | ECHOCARDIOGRAM REPORT ---
*NOTICE TO RECEIVING DEMOCRAT AGENCY This information is strictly Confidential and protected under [place] law. [place] law prohibits you from making any further disclosure of this information unless further disclosure is expressly permitted by the written consent of the person to whom it pertains or is authorized by law. A general authorization for the release of medical or other information is not sufficient for this purpose. Hospital accepts no responsibility if the information is made available to any other person, INCLUDING THE PATIENT. Interpretation Summary * Name: KAYDEN GARCIA Study Date: 06/20/2017 11:04 AM BP: 105/65 mmHg * Patient Location: [facility]\S\N275\S\2 HR: 71 * : 1935 (M/d/yyyy) Gender: Female Height: 62 in * Age: 81 yrs Ethnicity: [place] Weight: 94 lb * Ordering Physician: Cherise Cruz * Performed By: Diane Velasco * * Reason For Study: SYNCOPE * BSA: 1.4 m2 * Normal biventricular systolic function. * Mild right atrial dilatation. * Trace pulmonic, mitral, tricuspid regurgitation. * Normal estimated right ventricular systolic pressure. * No cardiac source of emboli noted. Procedure Details * A complete two-dimensional transthoracic echocardiogram was performed (2D, M-mode, Doppler and color flow Doppler). * There were technical limitations due to patient'sbody habitus Left Ventricle * The left ventricle is normal in size. * There is mild concentric left ventricular hypertrophy. * Ejection Fraction = 55-60%. * Left ventricular systolic function is normal. * The left ventricular wall motion is normal. Right Ventricle * The right ventricle is normal in size and function. Atria * The left atrial size is normal. * The right atrium is mildly dilated. * No ASD detected; PFO is not assessed. Mitral Valve * The mitral valve is normal. * There is no mitral valve stenosis. * There is trace mitral regurgitation. Tricuspid Valve * The tricuspid valve is normal. * There is no tricuspid stenosis. * There is trace tricuspid regurgitation. * Right ventricular systolic pressure is normal. Aortic Valve * The aortic valve is trileaflet. * The aortic valve opens well. * Aortic stenosis is absent. * No aortic regurgitation is present. Pulmonic Valve * The pulmonic valve is not well seen, but is grossly normal. * There is no pulmonic valvular stenosis. * Trace pulmonic valvular regurgitation. Great Vessels * The aortic root is normal size. Pericardium/Pleural * There is no pericardial effusion. Great Vessels * Normal inferior vena cava diameter and respiratory variation suggests normal central venous pressure. MMode 2D Measurements and Calculations IVSd 1.2 cm IVSs 2.0 cm LVIDd 3.4 cm LVIDs 2.5 cm LVPWd 1.2 cm LVPWs 1.3 cm IVS/LVPW 1.0 FS 27.4 % EDV(Teich) 48.3 ml ESV(Teich) 22.1 ml EF(Teich) 54.3 % EDV(cubed) 40.2 ml ESV(cubed) 15.4 ml EF(cubed) 61.7 % % IVS thick 65.9 % % LVPW thick 13.8 % LV mass(C)d 127.4 grams LV mass(C)dI 91.9 grams/m\S\2 LV mass(C)s 148.0 grams LV mass(C)sI 106.7 grams/m\S\2 SV(Teich) 26.3 ml SI(Teich) 18.9 ml/m\S\2 SV(cubed) 24.8 ml SI(cubed) 17.9 ml/m\S\2 Ao root diam 3.0 cm Ao root area 7.2 cm\S\2 ACS 1.4 cm LA dimension 3.4 cm asc Aorta Diam 3.3 cm LA/Ao 1.1 LVOT diam 1.9 cm LVOT area 2.9 cm\S\2 LVAd ap4 23.1 cm\S\2 LVLd ap4 7.3 cm EDV(MOD-sp4) 58.6 ml EDV(sp4-el) 61.8 ml LVAs ap4 13.7 cm\S\2 LVLs ap4 5.9 cm ESV(MOD-sp4) 25.6 ml ESV(sp4-el) 26.9 ml EF(MOD-sp4) 56.3 % EF(sp4-el) 56.5 % LVAd ap2 17.8 cm\S\2 LVLd ap2 7.6 cm EDV(MOD-sp2) 34.2 ml EDV(sp2-el) 35.7 ml LVAs ap2 10.5 cm\S\2 LVLs ap2 5.8 cm ESV(MOD-sp2) 16.0 ml ESV(sp2-el) 16.0 ml EF(MOD-sp2) 53.1 % EF(sp2-el) 55.3 % LVLd %diff 3.3 % EDV(MOD-bp) 45.8 ml LVLs %diff -0.78 % ESV(MOD-bp) 19.9 ml EF(MOD-bp) 56.6 % SV(MOD-sp4) 33.0 ml SI(MOD-sp4) 23.8 ml/m\S\2 SV(MOD-sp2) 18.2 ml SI(MOD-sp2) 13.1 ml/m\S\2 SV(MOD-bp) 25.9 ml SI(MOD-bp) 18.7 ml/m\S\2 SV(sp4-el) 34.9 ml SI(sp4-el) 25.2 ml/m\S\2 SV(sp2-el) 19.7 ml SI(sp2-el) 14.2 ml/m\S\2 Doppler Measurements and Calculations MV E max hanna 91.3 cm/sec MV A max hanna 72.5 cm/sec MV E/A 1.3 MV dec time 0.22 sec Ao V2 max 153.0 cm/sec Ao max PG 9.4 mmHg Ao max PG (full) 4.4 mmHg ANA(V,A) 2.1 cm\S\2 ANA(V,D) 2.1 cm\S\2 LV V1 max PG 5.0 mmHg LV V1 max 111.4 cm/sec MR max hanna 411.4 cm/sec MR max PG 67.7 mmHg PA V2 max 67.4 cm/sec PA max PG 1.8 mmHg PI end-d hanna 190.7 cm/sec TR max hanna 218.3 cm/sec
--- NOTE | 2017-06-20 19:24 | PROGRESS NOTE ---
DATE: 06/20/2017 HISTORY OF PRESENT ILLNESS: Mrs. Garduno is a very pleasant 81-year-old female with a history of breast cancer, hypertension, depression and vitamin B12 deficiency, who was admitted on 06/19/2017 after sudden onset of generalized weakness, lightheadedness and collapse without loss of consciousness. The patient was at the [facility] in [place]. 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 By the time she reached the other side of the car, she was feeling profoundly dizzy, lightheaded and tried to get back into the passenger's side. She was unable to get in before she collapsed to the ground. She did not have any loss of consciousness and recalls the events leading up to it. She denies any antecedent symptoms -- she specifically denies any antecedent palpitations, tachy palpitations, nausea or diaphoresis. The patient states that she has been eating and drinking appropriately. Thus far, she was hypoglycemic on admission, with borderline low blood pressure and positional changes in blood pressure readings and we have not found any cardiac arrhythmias which would explain these episodes. She had a similar episode 5 weeks ago and no etiology was found for it. PHYSICAL EXAMINATION: VITAL SIGNS: Temperature is 36.5 degree Celsius, pulse 77 and regular, respiratory rate is 16 and unlabored, blood pressure is 100/61 and SPO2 is 98% on room air. GENERAL: The patient is in no acute distress. HEENT: Head is atraumatic, normocephalic. EOMs intact. Sclerae are anicteric. Face is symmetric. No perioral cyanosis. Mucous membranes are moist. NECK: Without thyromegaly, adenopathy or JVD. CHEST AND LUNGS: Clear to auscultation throughout all lung de león, no wheezes, rales or rhonchi. CARDIOVASCULAR: S1 and S2 are regular without murmur, gallop or rub. PMI is nondisplaced. No lifts, heaves or thrills. No abdominal, aortic or renal bruits. ABDOMEN: Bowel sounds are present. No masses, organomegaly or tenderness. EXTREMITIES: Without clubbing, cyanosis or edema. NEUROLOGIC: The patient is awake, alert and oriented. Pleasant and cooperative. Answers questions appropriately. Speech is clear. Normal movement in all 4 extremities. Gait pattern not assessed. Echocardiogram shows normal biventricular systolic function with mild right atrial dilatation. Trace PI, trace MR, trace TR. Normal estimated RVSP. Telemetry monitoring shows predominantly normal sinus rhythm. No cardiac pauses. No atrial arrhythmias. No ventricular dysrhythmias. LABORATORIES: Sodium is 140 mmol/L, potassium 3.7 mmol/L, BUN of 11 mg/dL. Creatinine 0.82 mg/dL. Random glucose 144 mg per deciliter and magnesium level is 1.9 mg/dL. TSH is mildly elevated at 4.910 uIU/mL. ASSESSMENT: 1. Near syncope manifestedwith generalized weakness and collapse. 2. Mild hypoglycemia on admission. 3. Component of orthostasis. 4. Normal left ventricular systolic function. 5. No abnormal rhythms noted on telemetry. PLAN: 1. I will discuss with Dr. Monterroso. 2. The patient has been on monitor for approximately 24 hours, no abnormal rhythms have been noted. She has not had any further episodes. I would recommend monitoring on telemetry for the next 24 hours. If no arrhythmias are identified, would strongly consider a 30-day event monitor upon discharge. 3. 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 4. Continue Arimidex for the treatment of breast cancer. 5. She is off of her vasoactive medications at the present time because they "make me feel yucky " Continue monitoring daily PRP and CBC. MTDD
[2017-06-20] MEDS: SIMVASTATIN 40 MG TAB PO SCH (20:00)
--- NOTE | 2017-06-20 21:01 | Progress Note ---
Progress Note Date of Service Jun 20, 2017. Progress Note PA Supervision Note/Attending Addendum to PAKO Cerrato's Progress note dated : I have interviewed and examined the patient and agree with PAKO Cerrato's documented findings and plan of care with the following exceptions/additions: Pt feels fine now, is ameya po, no events on tele. Glucose levels have improved. She states she did not eat breakfast before she went out yesterday to [employer] to buy cereal and OJ. She remembers feeling very lightheaded and then collapsing to the ground. SHe has no h/o hypoglycemia she knows of. She lives along and drives. Was recently admitted overnight for a fall with head lac. SHe is very thin but states she has been this way her whole life and in fact, her sisters affectionately call her "La roz," which means "skinny" in her craig language of [place]alese. Vitals and tele reviewed-NSR NAD, very thin, underweight but pleasant, [place] [facility] no mgr CTAB no wcr Abd +BS soft NT ND Ext no edema 81 yo female here with syncope, seems to be related to a hypoglycemic event. Cardiac arrhythmia less likely. TSH mildly elevated at 4.5. ECHO reviewed -check AM fasting cortisol, FT4, FT3 -glucose checks -encouraged eating breakfast, frequent, small meals -continue tele monitoring -PT/OT evals not done yet especially in light of 2 falls now in the last month, may need at least Home Health, home safety visit by OT or SW
[2017-06-21] VITALS (7 sets, daily range): BP systolic 97–122; BP diastolic 56–75; PULSE 61–74; TEMP 36.7–37.1; O2SAT 96–99
[2017-06-21 07:21] LABS: BASO % 0.2 %; BASO ABS # 0.01 K/uL (0-0.2); COMPLETE YES; EOS % 2.4 %; HEMATOCRIT 28.2 % (37-47); IG% 0.4 %; LYMPH % 29.1 %; LYMPH ABS # 1.45 K/uL (1.2-3.4); MEAN CELL VOLUME 101.1 fL (80-100); MEAN CORPUSCULAR HEMOGLOBIN 34.1 pg (25-34); MEAN CORPUSCULAR HGB CONC 33.7 g/dl (32-36); MEAN PLATELET VOLUME 10.4 fL (7.4-10.4); MONO % 7.2 %; NEUT % 60.7 %; PLATELET COUNT 133 K/uL (130-400); RED BLOOD COUNT 2.79 M/uL (4.2-5.4); WHITE BLOOD COUNT 4.99 K/uL (4.8-10.8)
[2017-06-21 08:08] LABS: BUN/CREATININE RATIO 9.1 (10-20); CALCIUM 8.5 mg/dl (8.5-10.1); CREATININE 0.77 mg/dl (0.60-1.20); MAGNESIUM 1.5 mg/dl (1.8-2.4); POTASSIUM 3.5 mmol/L (3.5-5.1)
[2017-06-21] MEDS: CYANOCOBALAMIN 500 MCG TAB (VIT B-12) PO SCH (08:28)
[2017-06-21] MEDS: ANASTROZOLE 1 MG TAB PO SCH (08:28)
[2017-06-21 09:33] LABS: FERRITIN 390.3 ng/ml (8.0-388.0)
[2017-06-21] MEDS: MAGNESIUM SULFATE 1GM / D5W 1 GM in PREMIXED IN D5W 100 ML IV SCH ×2 (10:25→11:53)
[2017-06-21] MEDS: SIMVASTATIN 40 MG TAB PO SCH (19:58)
[2017-06-22] VITALS (7 sets, daily range): BP systolic 102–131; BP diastolic 66–74; PULSE 61–96; TEMP 36.6–36.9; O2SAT 98–100
--- NOTE | 2017-06-22 01:41 | Hospitalist Progress Note ---
Hospitalist Progress Note Date of Service Jun 21, 2017. Subjective Pt evaluation today including: conversation w/ patient Pt confused at times, asks same question more than once. Told RN she was in her room at her house. Pt has no complaints. SHe refused PT evaluation today stating she was too tired. No events on tele. Pt admits to me today she drinks Scotch daily, about 2 oz. This is more than previously reported. Her neighbor came to visit today and told RN she is very concerned about the pt driving and her general safety. Pt denies any problems All Other Systems: Reviewed and Negative Objective Vital Signs Date Time Temp Pulse Resp B/P (MAP) Pulse Ox O2 Delivery O2 Flow Rate FiO2 06/22/17 00:00 Room Air 06/21/17 23:56 36.9 64 16 102/61 (75) 96 Room Air 06/21/17 20:00 Room Air 06/21/17 19:44 36.7 74 20 122/75 (91) 99 Room Air 06/21/17 16:00 Room Air 06/21/17 12:44 36.7 74 20 114/73 (87) 98 06/21/17 12:00 Room Air 06/21/17 08:00 Room Air 06/21/17 07:58 36.8 66 20 99/57 (71) 98 06/21/17 07:05 37.1 61 20 97/56 (70) 97 Room Air 06/21/17 04:00 Room Air 06/21/17 04:00 36.8 62 16 108/64 (79) 98 Room Air Physical Exam General Appearance: no apparent distress, + thin Eyes: normal inspection, sclerae normal ENT: + pertinent finding (S[place]-CAYU[place]) Neck: trachea midline Respiratory/Chest: lungs clear, normal breath sounds, no respiratory distress, no accessory muscle use Cardiovascular: regular rate, rhythm, no edema, no gallop, no murmur Abdomen: normal bowel sounds, non tender, soft, no organomegaly, no pulsatile mass Extremities: non-tender, normal inspection, no pedal edema, no calf tenderness Neurologic/Psychiatric: alert, + pertinent finding (repeats herself at times, answers questions with sentences that are off topic) Skin: normal color, warm/dry, no rash Laboratory Results Last 24 Hours Test 06/21/17 07:04 06/21/17 07:10 06/21/17 11:38 06/21/17 16:11 Bedside Glucose 75 mg/dl 96 mg/dl 107 mg/dl White Blood Count 4.99 K/uL Red Blood Count 2.79 M/uL Hemoglobin 9.5 g/dL Hematocrit 28.2 % Mean Corpuscular Volume 101.1 fL Mean Corpuscular Hemoglobin 34.1 pg Mean Corpuscular Hemoglobin Concent 33.7 g/dl Platelet Count 133 K/uL Mean Platelet Volume 10.4 fL Neutrophils (%) (Auto) 60.7 % Lymphocytes (%) (Auto) 29.1 % Monocytes (%) (Auto) 7.2 % Eosinophils (%) (Auto) 2.4 % Basophils (%) (Auto) 0.2 % Neutrophils # (Auto) 3.03 K/uL Lymphocytes # (Auto) 1.45 K/uL Monocytes # (Auto) 0.36 K/uL Eosinophils # (Auto) 0.12 K/uL Basophils # (Auto) 0.01 K/uL RDW Standard Deviation 48.3 fL RDW Coefficient of Variation 13.1 % Immature Granulocyte % (Auto) 0.4 % Immature Granulocyte # (Auto) 0.02 K/uL Sodium Level 138 mmol/L Potassium Level 3.5 mmol/L Chloride Level 107 mmol/L Carbon Dioxide Level 23 mmol/L Anion Gap 8.0 mmol/L Blood Urea Nitrogen 7 mg/dl Creatinine 0.77 mg/dl Est Creatinine Clear Calc Drug Dose 41.3 ml/min Estimated GFR () 85.1 Estimated GFR (Non- 73.4 BUN/Creatinine Ratio 9.1 Random Glucose 74 mg/dl Calcium Level 8.5 mg/dl Magnesium Level 1.5 mg/dl Iron Level 51 mcg/dl Total Iron Binding Capacity 149 mcg/dl Transferrin 109 mg/dl Transferrin % Saturation 33 % Ferritin 390.3 ng/ml Free Thyroxine 0.98 ng/dl Free Triiodothyronine 2.21 pg/ml Cortisol AM Sample 11.95 mcg/dl Test 06/21/17 20:03 Bedside Glucose 159 mg/dl Assessment and Plan 81 yo female here with syncope, seems to be related to a hypoglycemic event. Cardiac arrhythmia less likely. TSH mildly elevated at 4.5. ECHO reviewed AM fasting cortisol normal at 11, FT4 normal, FT3 low, TSH elevated Syncope: this is pt's second episode in about 5 weeks, seems to be related possibly to poor po intake, chronic EtOH use, and hypoglycemia ECHO, carotid US Trop neg EKG with PACs CT head WNL WBC WNL, afebrile, UA and CXR neg for infectious Orthostatics neg BS ACHS May need an event monitor should be considered on d/c -encouraged small frequent meals throughout the day -continue tele monitoring HypoMg: low again today -replace IV magnesium HTN? Pt is supposed to be on plendil, but is unclear why BP have been on the lower side, will not restart Vitamin B12 deficiency: B12 here > 300 folate normal Chronic EtOH use-drinks 1 scotch every night, may be at risk for withdrawal -Banana bag daily -follow for EtOH withdrawal Other: Full code Ambulation for DVT proph given likely short duration of stay Reg diet Dispo- -PT eval not done yet due to pt refusal. 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 She had unexplained syncope and possible hypoglycemia. Concern for her going home alone. Called neighbor/POC to discuss pt's baseline status but did not answer
[2017-06-22] MEDS ORDERED: LORAZEPAM 1 MG TAB PO PRN (01:45)
[2017-06-22] MEDS: MULTI-VITAMIN INFUSION INJ 10 ML, THIAMINE HCL INJ 100 MG, FoLIC ACID INJ 1 MG in SODIU... IV SCH ×2 (02:37→07:52)
[2017-06-22] MEDS: CYANOCOBALAMIN 500 MCG TAB (VIT B-12) PO SCH (07:52)
[2017-06-22] MEDS: ANASTROZOLE 1 MG TAB PO SCH (07:54)
--- NOTE | 2017-06-22 16:46 | Progress Note ---
Subjective Date of Service: Jun 22, 2017. Subjective Pt evaluation today including: conversation w/ patient, physical exam, chart review, lab review, review of inpatient medication list feeling ok. no significant problems at this time other than IV bothering her. discussed fall, discussed rehab in detail - at the time of my discussion she was agreeable but entirely changed her mind when discussing with case management and flatly refused anything but home. notes that she does eat fairly well - cooks usually every other day or so, eats oatmeal, cereal, eggs for breakfast, eats fish for lunch. notes that she doesn't go hungry. has neighbors that help look after her as well. notes that she's feeling better now because she is resting Problem List Medical Problems: (1) Alcohol abuse Status: Acute (2) Altered mental status Status: Acute (3) Contusion of multiple sites Status: Acute (4) Dehydration Status: Acute (5) Frequent falls Status: Acute (6) Hypoglycemia Status: Acute (7) Scalp laceration Status: Acute (8) Syncope Status: Acute (9) Weakness Status: Acute Review of Systems all other ROS otherwise negative except for as above Objective Vital Signs Date Time Temp Pulse Resp B/P (MAP) Pulse Ox O2 Delivery O2 Flow Rate FiO2 06/22/17 16:00 Room Air 06/22/17 15:09 36.6 61 18 102/66 (78) 98 06/22/17 12:00 98 Room Air 06/22/17 11:28 36.8 96 18 106/69 (81) 98 06/22/17 08:00 98 Room Air 06/22/17 07:22 36.7 74 18 114/73 (87) 98 06/22/17 04:45 36.9 63 20 115/74 (88) 98 Room Air 06/22/17 04:00 Room Air 06/22/17 00:00 Room Air 06/21/17 23:56 36.9 64 16 102/61 (75) 96 Room Air 06/21/17 20:00 Room Air 06/21/17 19:44 36.7 74 20 122/75 (91) 99 Room Air Physical Exam General Appearance: no apparent distress Eyes: EOMI ENT: hearing grossly normal Neck: trachea midline Respiratory/Chest: no respiratory distress, no accessory muscle use Extremities: normal range of motion, normal inspection Neurologic/Psychiatric: button spindler II-XII nml as tested, alert, normal mood/affect Skin: normal color, warm/dry Laboratory Results Last 24 Hours Test 06/21/17 20:03 06/22/17 07:25 06/22/17 11:30 Bedside Glucose 159 mg/dl 78 mg/dl 94 mg/dl Assessment and Plan Syncope: this is pt's second episode in about 5 weeks, seems to be related possibly to poor po intake/deficiencies, chronic EtOH use, and hypoglycemia ECHO, carotid US noted Trop neg EKG with PACs CT head WNL WBC WNL, afebrile, UA and CXR neg for infectious Orthostatics neg BS ACHS fairly unremarkable May need an event monitor - will ask to have arranged at dc -home nursing, home OT eval will be needed, will need office of aging involved -encouraged small frequent meals throughout the day -is doing well enough w PT/OT that home is not so unreasonable as to force AMA type situation if she refuses rehab - will just need to ensure as much supportive services as can be arranged anemia -follow - no s/s blood loss -B12 noted, continue replacement HypoMg: continue w oral replacement HTN? Pt is supposed to be on plendil, but is unclear why BP have been on the lower side, will not restart -- continue to follow Vitamin B12 deficiency: B12 here 312 folate normal continue B12 PO Chronic EtOH use-drinks 1 scotch every night, may be at risk for withdrawal -Banana bag daily -follow for EtOH withdrawal, none currently noted -check vitamin D elevated TSH -TFTs borderline but nondiagnostic - repeat ~4-6wks Other: Full code Ambulation for DVT proph given likely short duration of stay Reg diet anticipate discharge tomorrow
[2017-06-22] MEDS: MAGNESIUM OXIDE 400 MG TAB PO SCH (20:20)
[2017-06-22] MEDS: SIMVASTATIN 40 MG TAB PO SCH (20:21)
[2017-06-23] VITALS (11 sets, daily range): BP systolic 103–125; BP diastolic 60–69; PULSE 64–81; TEMP 36.7–37.6; O2SAT 97–99
[2017-06-23] MEDS: CYANOCOBALAMIN 500 MCG TAB (VIT B-12) PO SCH (08:40)
[2017-06-23] MEDS: ANASTROZOLE 1 MG TAB PO SCH (08:40)
[2017-06-23] MEDS: MAGNESIUM OXIDE 400 MG TAB PO SCH ×2 (08:40→20:34)
[2017-06-23] MEDS: MULTI-VITAMIN INFUSION INJ 10 ML, THIAMINE HCL INJ 100 MG, FoLIC ACID INJ 1 MG in SODIU... IV SCH (08:41)
[2017-06-23] MEDS ORDERED: THM100 PO (13:53)
[2017-06-23] MEDS ORDERED: VTMB12 PO (13:53)
[2017-06-23] MEDS ORDERED: MGNO400 PO (13:53)
[2017-06-23] MEDS ORDERED: MULT-589 PO (13:53)
[2017-06-23] MEDS ORDERED: FOLI1TAB7 PO (13:53)
[2017-06-23] MEDS ORDERED: CHOL2000 PO (13:53)
--- NOTE | 2017-06-23 14:06 | Discharge Instructions ---
Discharge Instructions Date of Service Jun 23, 2017. Admission Reason for Admission: Syncope Discharge Discharge Diagnosis / Problem: fall/fainting/weakness - due to deficiencies/ under-nutrition Discharge Goals Goal(s): Improve function, Increase independence, Improve disease control, Improve nutritional status, Learn about illness, Diagnostic testing, Therapeutic intervention Activity Recommendations Activity Limitations: as noted below (no driving until you've improved enough that Dr Arnold feels you would be safe to resume; use caution and think about fall prevention) . Instructions / Follow-Up Instructions / Follow-Up your fainting/fall appears due to overall weakness - both in being mildly malnourished overall, as well as being deficient or borderline in several vitamins and minerals (magnesium, B12, vitamin D, etc) ---make sure that you're getting enough to eat. while you were clear to me that you're doing fine, if you are struggling at all there are many resources ( starting with the [facility]) that can help ---continue to take the vitamins/supplements until/unless Dr Arnold directs you otherwise (and depending on how things go with B12 supplementation, he might need to change it from a pill to an injection) ---make sure you're staying well hydrated (drink at least 60 ounces of non- caffeinated, non-alcoholic fluids a day) ---stop your felodipine (plendil) -- right now your blood pressures have been good without it. frequently as we age our bodies change and sometimes we don't need medications that we used to need -- certainly if your blood pressures were running too low that could lead to a fall as well ---remember that while you've had two falls in the last month that have landed you in the hospital, you've actually been kristin (you've fortunately not suffered a fracture or serious injury from any of your falls, but there's no way to promise that the next one will be just as injury free -- so the goal is to do everything we can to prevent the next one altogether. this involves realizing that right now you're weaker and more prone to falls than you would expect (or you used to be...and hopefully with time/nutrition/strengthening your fall risk will go down in the future). our gravest concerns would be a hip fracture (which carries about a 50% risk of permanently losing your ability to be independent, and a small but real risk of dying as an immediate consequence of the fracture) or a skull fracture (which are more rare, but obviously also far more dangerous in your life, independence, and well being). let the home nursing and home therapists in, and allow them to do their job to help assess your situation and make guidance and recommendations to reduce your risk of falling again ---please use caution, think about your safety first, and take care of yourself. we want you to be able to remain healthy and independent for the foreseeable future, and nothing could adair you of that faster than another fall with an injury Current Hospital Diet Patient's current hospital diet: Regular Diet Discharge Diet Recommended Diet: Regular Diet Pending Studies Studies pending at discharge: no Medical Emergencies . Who to Call and When: Medical Emergencies: If at any time you feel your situation is an emergency, please call 911 immediately. . Non-Emergent Contact Non-Emergency issues call your: Primary Care Provider (we're working on getting you in with Dr Arnold/part of the [facility] team for later this week.) . . "Provider Documentation" section prepared by Aguila Baxter. . VTE Core Measure Inpt VTE Proph given/why not?: Treatment not indicated
--- NOTE | 2017-06-23 14:20 | Discharge Summary ---
Discharge Summary Date of Service Jun 23, 2017. Discharge Summary Admission Date: Jun 19, 2017 at 18:28 Discharge Date: Jun 23, 2017 Discharge Disposition: Home with services Principal Diagnosis: syncope, nutritional deficiencies/mild malnutrition Immunizations: Have You Had Influenza Vaccine: No History of Tetanus Vaccine?: unknown History of Pneumococcal: No History of Hepatitis B Vaccine: No Procedures: echo: Interpretation Summary Name: KAYDEN GARCIA Study Date: 06/20/2017 11:04 AM BP: 105/65 mmHg Patient Location: [facility]\\S\\N275\\S\\2 HR: 71 : 1935 (M/d/yyyy) Gender: Female Height: 62 in Age: 81 yrs Ethnicity: [place] Weight: 94 lb Ordering Physician: Cherise Cruz Performed By: Diane Velasco Reason For Study: SYNCOPE BSA: 1.4 m2 Normal biventricular systolic function. Mild right atrial dilatation. Trace pulmonic, mitral, tricuspid regurgitation. Normal estimated right ventricular systolic pressure. No cardiac source of emboli noted. Procedure Details A complete two-dimensional transthoracic echocardiogram was performed (2D, M- mode, Doppler and color flow Doppler). There were technical limitations due to patient'sbody habitus Left Ventricle The left ventricle is normal in size. There is mild concentric left ventricular hypertrophy. Ejection Fraction = 55-60%. Left ventricular systolic function is normal. The left ventricular wall motion is normal. Right Ventricle The right ventricle is normal in size and function. Atria The left atrial size is normal. The right atrium is mildly dilated. No ASD detected; PFO is not assessed. Mitral Valve The mitral valve is normal. There is no mitral valve stenosis. There is trace mitral regurgitation. Tricuspid Valve The tricuspid valve is normal. There is no tricuspid stenosis. There is trace tricuspid regurgitation. Right ventricular systolic pressure is normal. Aortic Valve The aortic valve is trileaflet. The aortic valve opens well. Aortic stenosis is absent. No aortic regurgitation is present. Pulmonic Valve The pulmonic valve is not well seen, but is grossly normal. There is no pulmonic valvular stenosis. Trace pulmonic valvular regurgitation. Great Vessels The aortic root is normal size. Pericardium/Pleural There is no pericardial effusion. Great Vessels Normal inferior vena cava diameter and respiratory variation suggests normal central venous pressure. [~ rep ct add3]] ULTRASOUND OF THE CAROTID ARTERIES CLINICAL HISTORY: syncope COMPARISON STUDY: None. TECHNIQUE: Real-time, grayscale, and color Doppler sonography of the carotid arteries was performed. Imaging reviewed in the transverse and longitudinal planes. NASCET criteria was utilized for stenosis calcification. FINDINGS: There is mild to moderate calcific shadowing atherosclerotic plaque present . The peak systolic velocity within the right internal carotid artery is 78 cm/sec. The systolic velocity ratio of right internal to common carotid artery is 1.1. The peak systolic velocity within the left internal carotid artery is 48 cm/sec. The systolic velocity ratio left internal to common carotid artery is 0.8. Antegrade flow is seen in the vertebral arteries. The external carotid arteries are patent. Blood pressure in the right arm measured 108 mm/Hg. Blood pressure in the left arm measured 112 mm/Hg. IMPRESSION: No evidence of hemodynamically significant carotid stenosis. CHEST ONE VIEW PORTABLE CLINICAL HISTORY: Chest pain. COMPARISON STUDY: Chest radiograph and chest CT May 12, 2017. FINDINGS: No pneumothorax or pleural effusion is present. There is no evidence of pulmonary edema. Cardiomediastinal silhouette is normal. Pulmonary vascularity is normal. There are several old right rib fractures. Right axillary surgical clips are incidentally noted. Patient is mildly rotated. IMPRESSION: No acute cardiopulmonary findings. Electronically signed by: Remy Lopes M.D. 06/19/2017 3:37 PM COMPARISON STUDY: 05/12/2017 TECHNIQUE: Axial CT of the brain is performed from the vertex to the skull base. IV contrast was not administered for this examination. A dose lowering technique was utilized adhering to the principles of ALARA. CT DOSE: 638.56 mGycm FINDINGS: No intra or extra-axial mass lesions are visualized. There is no CT evidence of acute cortical infarction. There is no evidence of midline shift. There is no acute hemorrhage. No calvarial fractures are visualized. There are patchy white matter hypodensities likely on a small vessel basis. There is no evidence of pathologic ventricular dilatation. 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 There is no evidence of acute sinusitis. IMPRESSION: No acute intracranial findings Last Resulted CBC 06/21/17 07:10 Red Blood Count 2.79, Mean Corpuscular Volume 101.1, Mean Corpuscular Hemoglobin 34.1, Mean Corpuscular Hemoglobin Concent 33.7, Mean Platelet Volume 10.4, Neutrophils (%) (Auto) 60.7, Lymphocytes (%) (Auto) 29.1, Monocytes (%) ( Auto) 7.2, Eosinophils (%) (Auto) 2.4, Basophils (%) (Auto) 0.2, Neutrophils # ( Auto) 3.03, Lymphocytes # (Auto) 1.45, Monocytes # (Auto) 0.36, Eosinophils # ( Auto) 0.12, Basophils # (Auto) 0.01 Last Resulted BMP 06/21/17 07:10 Item Value Date Time Mean Corpuscular Volume 101.1 fL H 06/21/17 0710 Hemoglobin A1c 4.9 % 02/05/17 1128 Magnesium Level 1.5 mg/dl L 06/21/17 0710 Iron Level 51 mcg/dl 06/21/17 0710 Total Iron Binding Capacity 149 mcg/dl L 06/21/17 0710 Transferrin 109 mg/dl L 06/21/17 0710 Ferritin 390.3 ng/ml H 06/21/17 0710 Aspartate Amino Transf (AST/SGOT) 42 U/L H 06/19/17 1438 Alanine Aminotransferase (ALT/SGPT) 26 U/L 06/19/17 1438 Alkaline Phosphatase 110 U/L 06/19/17 1438 Cholesterol Level 269 mg/dl H 02/05/17 1128 Albumin 3.1 gm/dl L 06/19/17 1438 Total Protein 6.3 gm/dl L 06/19/17 1438 25-Hydroxy Vitamin D Total 27.4 ng/ml L 06/23/17 0648 Vitamin B12 Level 312 pg/mL 06/20/17 0513 Thyroid Stimulating Hormone (TSH) 4.910 uIu/ml H 06/20/17 0513 Free Thyroxine 0.98 ng/dl 06/21/17 0710 Free Triiodothyronine 2.21 pg/ml L 06/21/17 0710 Medication Reconciliation New Medications: Cholecalciferol (Vitamin D3) 2,000 Unit Cap 1 CAP PO DAILY for 30 Days, #30 CAP 3 Refills Folic Acid (Folvite) 1 Mg Tab 1 MG PO DAILY, #30 TAB Multivitamins (Daily Rishi) 1 Tab Tab 1 TAB PO DAILY, #30 TAB Thiamine HCl (Vitamin B-1) 100 Mg Tab 1 TAB PO DAILY, #30 TAB Cyanocobalamin (Vitamin B-12) 500 Mcg Tab 1000 MCG PO DAILY, #30 TAB Magnesium Oxide (Magnesium-Oxide) 400 Mg Tab 400 MG PO BID, #60 TAB Continued Medications: Anastrozole (Arimidex) 1 Mg Tab 1 MG PO DAILY, TAB Calcium Citrate-Vitamin D (Citracal + D3 Maximum) 1 Tab Tab Unknown Dose PO DIRECTED Gemfibrozil (Lopid) 600 Mg Tab 600 MG PO BID, TAB Sertraline (Zoloft) 50 Mg Tab 50 MG PO DAILY, TAB Simvastatin (Zocor) 40 Mg Tab 40 MG PO QPM, TAB Discontinued Medications: Cyanocobalamin (Vitamin B12) 1,000 Mcg Tab 1000 MCG PO DIRECTED Felodipine (Plendil) 5 Mg Tabcr 5 MG PO DAILY, TAB Discharge Exam Physical Exam: General Appearance: no apparent distress Eyes: EOMI ENT: hearing grossly normal Neck: trachea midline Respiratory/Chest: no respiratory distress, no accessory muscle use Neurologic/Psychiatric: 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, alert, normal mood/affect (MMSE 24/30 (2/5 on DLROW, 1/3 on remote recall of objects, 0/1 repeating "no ifs, ands, or buts)), oriented x 3 Skin: normal color, warm/dry Hospital Course Syncope: this is pt's second episode in about 5 weeks, seems to be related possibly to poor po intake/deficiencies, chronic EtOH use, and hypoglycemia ECHO, carotid US noted Trop neg EKG with PACs CT head WNL WBC WNL, afebrile, UA and CXR neg for infectious Orthostatics neg, but stopped felodipine without any significant elevations in BP BS ACHS fairly unremarkable May need an event monitor - will ask to have arranged at mt -home nursing, home OT eval will be needed, will need office of aging involved -encouraged adequate nutrition, hydration. -emphasized safety -no driving currently (case management was to review using county transportation/office of aging resources) -supplements as above noted in med list anemia -follow - no s/s blood loss -B12 noted, continue replacement HypoMg: continue w oral replacement HTN? Pt is supposed to be on plendil, but BP have been on the lower side, will not restart -- continue to follow up as outpt Vitamin B12 deficiency: B12 here 312, was previously just under 300, uncertain how often she is taking the supplement - will encourage adherence to daily, if levels still borderline then may need IM B12 Chronic EtOH use-drinks 1 scotch every night, but other than nonspecific ing, did not show any clear s/s withdrawal -thiamine, folate, MVI daily for safety vitamin D insufficiency -supplement mild protein/calorie malnutrition -ongoing office follow up, encouraged adequate nutrition probable mild dementia -improve nutritional status and deficiencies, continue to reassess. MMSE today appearing quite similar to ~4 months ago elevated TSH -TFTs borderline but nondiagnostic - repeat ~4-6wks EXTENSIVE discussions with pt, ensured that she understood risks and benefits, cautiously safe for home w supportive care and close f/u. home nursing, home OT , etc to start this week as well Total Time Spent: Greater than 30 minutes This includes examination of the patient, discharge planning, medication reconciliation, and communication with other providers. Discharge Instructions Please refer to the electronic Patient Visit Report (Discharge Instructions) for additional information. Additional Copies To Rodger Arnold M.D.
[2017-06-23] MEDS: SIMVASTATIN 40 MG TAB PO SCH (20:34)
[2017-06-24 04:05] VITALS: BP 109/63; PULSE 60; TEMP 37.2; O2SAT 97
[2017-06-24 07:06] VITALS: BP 103/68; PULSE 69; TEMP 37.1; O2SAT 97
[2017-06-24 08:00] VITALS: O2SAT 97
[2017-06-24] MEDS ORDERED: NURSING VERBAL MED ORDER ONE (08:45)
[2017-06-24] MEDS: MAGNESIUM OXIDE 400 MG TAB PO SCH ×2 (08:47→22:16)
[2017-06-24] MEDS: CYANOCOBALAMIN 500 MCG TAB (VIT B-12) PO SCH (08:47)
[2017-06-24] MEDS: ANASTROZOLE 1 MG TAB PO SCH (08:48)
[2017-06-24 12:00] VITALS: O2SAT 97
--- NOTE | 2017-06-24 13:57 | Discharge Instructions ---
Discharge Instructions Date of Service Jun 24, 2017. Admission Reason for Admission: Syncope Discharge Discharge Diagnosis / Problem: syncope, weakness due to poor nutrition/self care Discharge Goals Goal(s): Diagnostic testing, Therapeutic intervention Activity Recommendations Activity Level: Assistance Required Therapies: Physical Therapy, Occupational Therapy . Additional Information Patient informed of condition: Yes Advance Directives: No DNR: No Level of Care: Acute Rehab Communicable Disease: No Prognosis: Stable Current Hospital Diet Patient's current hospital diet: Regular Diet Discharge Diet Recommended Diet: Regular Diet (encourage PO intake, nutritional support) Pending Studies Studies pending at discharge: no Medical Emergencies . Who to Call and When: Medical Emergencies: If at any time you feel your situation is an emergency, please call 911 immediately. . Non-Emergent Contact Non-Emergency issues call your: Primary Care Provider . . "Provider Documentation" section prepared by Aguila Baxter. . Core Measure Problem Core Measures: None
--- NOTE | 2017-06-24 14:00 | Progress Note ---
Progress Note Date of Service Jun 24, 2017. Progress Note pts friend/neighbor refused to pick her up yesterday. despite multiple attempts of several members of the team she did not answer phone. apparently this morning was reached and refuses to take her home as living situation is quite poor and she does not believe is safe for pt. went to discuss w pt - she noted she was very tired. later she discussed with case management and is amenable to rehab! vitals noted nad breathing unlabored no pallor or icterus, fatigued appearing weakness/syncope/nutritional deficiencies including mild protein calorie malnutrition -continue supplements and nutritional support -for rehab as soon as approved/available -otherwise as per yesterday's dc summary
[2017-06-24 16:00] VITALS: O2SAT 97
[2017-06-24] MEDS: SIMVASTATIN 40 MG TAB PO SCH (22:16)
[2017-06-24 23:40] VITALS: BP 113/73; PULSE 62; TEMP 36.8; O2SAT 98
[2017-06-25 00:01] VITALS: O2SAT 98
[2017-06-25 07:14] VITALS: BP 134/81; PULSE 72; TEMP 36.8; O2SAT 95
[2017-06-25 07:19] VITALS: BP 112/74; PULSE 61; TEMP 36.9; O2SAT 96
[2017-06-25] MEDS: CYANOCOBALAMIN 500 MCG TAB (VIT B-12) PO SCH (09:49)
[2017-06-25] MEDS: MAGNESIUM OXIDE 400 MG TAB PO SCH ×2 (09:50→20:49)
[2017-06-25] MEDS: ANASTROZOLE 1 MG TAB PO SCH (09:50)
[2017-06-25 11:05] VITALS: BP 94/60; PULSE 72; TEMP 36.7; O2SAT 99
--- NOTE | 2017-06-25 15:30 | Progress Note ---
Progress Note Date of Service Jun 25, 2017. Progress Note no new problems no new issues. HSR initially denied. peer to peer - discussed nuances of case and reviewing physician quickly expressed understanding of pt's need and the likelihood of significant improvement in her ability to be independent. approved rehab. alejandro noted nad. falls/weakness/deconditioning/nutritional deficiency/EtOH abuse -- stable for rehab. otherwise as per prior dc summary
[2017-06-25 15:43] VITALS: BP 104/70; PULSE 67; TEMP 37.2; O2SAT 99
[2017-06-25] MEDS: SIMVASTATIN 40 MG TAB PO SCH (20:49)
[2017-06-26 01:12] VITALS: BP 122/74; PULSE 71; TEMP 37; O2SAT 96
[2017-06-26 07:33] VITALS: BP 98/62; PULSE 67; TEMP 37; O2SAT 97
[2017-06-26] MEDS: CYANOCOBALAMIN 500 MCG TAB (VIT B-12) PO SCH (07:57)
[2017-06-26] MEDS: MAGNESIUM OXIDE 400 MG TAB PO SCH (07:57)
[2017-06-26] MEDS: ANASTROZOLE 1 MG TAB PO SCH (07:59)
[2017-06-26 14:52] VITALS: BP 111/67; PULSE 72; TEMP 36.9; O2SAT 96
--- NOTE | 2017-06-26 17:56 | Progress Note ---
Progress Note Date of Service Jun 26, 2017. Progress Note despite peer to peer review physician giving me the strong impression of approval, insurance company then still denied rehab anyway, inexplicably. pt does not want SNF, although with the convoluted manner in which her rehab stay seemed to be approved and then was denied anyway, insurance company would have left her waiting likely additional days for consideration for SNF. d/w pt - at this point she opts for home, and is willing to allow home nursing, home PT for safety. case managment discussed call alert button, she appears willing. no driving. actually drivers license already no longer valid even before dr nugent submitting information. vitals noted nad breathing unlabored no pallor or icterus syncope/deconditioning/weakness - improved. still believe would benefit from rehab. insurance company behavior confusing and misleading, fortunately she has not shown iatrogenic infection from the prolonged length of stay that came from their behaviors (although should she develop anything in terms of hospital acquired infection i certainly would hold their behaviors accountable at least in part) -stable medically -home today -home PT/home nursing -neighbor aware and will be helping check on her -close PCP f/u
--- NOTE | 2017-07-07 13:38 | CODING QUERY MEDICAL NECESSITY ---
CQSUPPORTING DIAGNOSIS NEEDED A supporting diagnosis is required for the test/procedure performed on this patient in order for us to be reimbursed by the patient's insurance. Please provide a supporting diagnosis for the following test/procedure listed below next to the test name along with your signature. *If there is no additional diagnosis for this patient that would support the following test/procedure please document that below next to the test/procedure. Test(s)/Procedure(s) that require a supporting diagnosis: DOS 06/23/17 VITAMIN D TEST CONTROLLED SUBSTANCE Provider Signature: Date: Thank you Isabel Fung Health Information Management Once completed, please kindly fax back to [phone] For questions please call [phone]
== END 2017-06-26 19:06 | disposition home or self-care (01) ==
LOC: EDBD 14:16 → C.EDB 14:17 → C.MED 18:28 → ENRESERV 18:46
PROVIDERS: ADMIT Family Medicine; ATTEND Family Medicine
DX: R55 Syncope and collapse (principal); R53.1 Weakness; E83.42 Hypomagnesemia; E44.1 Mild protein-calorie malnutrition; F10.10 Alcohol abuse, uncomplicated; E11.649 Type 2 diabetes mellitus with hypoglycemia without coma; E53.8 Deficiency of other specified B group vitamins; Z85.3 Personal history of malignant neoplasm of breast; Z87.891 Personal history of nicotine dependence

== ENCOUNTER → 2018-01-06 | Outpatient (CLI) | payer BC ==
[~2018-01-06] MED LIST changes: +CHOL2000 PO; -CYAN100020 PO; -FELO5TAB PO; +MGNO400 PO; +MULT-589 PO; +THM100 PO; +VTMB12 PO
[2018-01-06 16:56] LABS: BASO % 0.4 %; BASO ABS # 0.03 K/uL (0-0.2); EOS % 0.4 %; EOS ABS # 0.03 K/uL (0-0.5); HEMOGLOBIN 12.4 g/dL (12.0-16.0); IG# 0.03 K/uL (0.00-0.02); LYMPH % 21.6 %; LYMPH ABS # 1.48 K/uL (1.2-3.4); MEAN CELL VOLUME 90.5 fL (80-100); MEAN CORPUSCULAR HEMOGLOBIN 30.3 pg (25-34); MEAN CORPUSCULAR HGB CONC 33.5 g/dl (32-36); MEAN PLATELET VOLUME 10.4 fL (7.4-10.4); MONO % 7.6 %; MONO ABS # 0.52 K/uL (0.11-0.59); NEUT % 69.6 %; NEUT ABS # 4.75 K/uL (1.4-6.5); PLATELET COUNT 238 K/uL (130-400); RED CELL DISTRIBUTION WIDTH CV 13.7 % (11.5-14.5); RED CELL DISTRIBUTION WIDTH SD 45.3 fL (36.4-46.3); RETIC COUNT % 0.8 % (0.5-2.0); WHITE BLOOD COUNT 6.84 K/uL (4.8-10.8)
[2018-01-06 17:10] LABS: ALBUMIN 3.9 gm/dl (3.4-5.0); ALT/SGPT 27 U/L (12-78); BLOOD UREA NITROGEN 12 mg/dl (7-18); CALCIUM 9.6 mg/dl (8.5-10.1); CARBON DIOXIDE 30 mmol/L (21-32); CHOLESTEROL 223 mg/dl (0-200); CREATININE 0.77 mg/dl (0.60-1.20); GLUCOSE 79 mg/dl (70-99); POTASSIUM 4.3 mmol/L (3.5-5.1); SODIUM 135 mmol/L (136-145)
[2018-01-06 17:19] LABS: ALKALINE PHOSPHATASE 111 U/L (45-117); AST/SGOT 24 U/L (15-37); TOTAL PROTEIN 7.6 gm/dl (6.4-8.2); TRANSFERRIN 249 mg/dl (200-360)
== END | disposition home or self-care (01) ==
LOC: C.LABBFT 13:49
PROVIDERS: ATTEND Internal Medicine
DX: E11.9 Type 2 diabetes mellitus without complications (principal); E78.5 Hyperlipidemia, unspecified; F03.90 Unspecified dementia, unspecified severity, without behavioral disturbance, psychotic disturbance, mood disturbance, and anxiety; D64.9 Anemia, unspecified

== ENCOUNTER → 2018-05-06 | Outpatient (CLI) | payer BC ==
[~2018-05-06] MED LIST changes: -ANAS1TAB19 PO; +ANAS1TAB59 PO; +THIA100T27 PO; -THM100 PO
== END | disposition home or self-care (01) ==
LOC: C.LABBFT 15:17
PROVIDERS: ATTEND Internal Medicine
DX: E55.9 Vitamin D deficiency, unspecified (principal); R94.6 Abnormal results of thyroid function studies